=== PATIENT | male | born 1950 | race Caucasian/White ===

== ENCOUNTER 2020-07-16 12:57 | Emergency (ER) | payer MEDICARE, OTHER, SELFPAY ==
[2020-07-16] VITALS (33 sets, daily range): BP systolic 140–191; BP diastolic 96–119; PULSE 66–90; RESP 9–22; TEMP 36.9; O2SAT 88–100
--- NOTE | ~2020-07-16 | CT_ITS ---
EXAMINATION: CT diagnostic chest w con EXAM DATE: 07/16/2020 16:39 INDICATION: Metastasis history of prostatic cancer. TECHNIQUE: Spiral CT of the chest following intravenous injection of 75 mL Omnipaque 350. Axial, cor onal and sagittal images of the chest were reviewed. Coronal maximum intensity pixel images of chest reviewed. The dose-length product (DLP) for this examination was 240.06 mGy-cm. The exposure was t ailored according to patient size (auto mA exposure control), and iterative reconstruction (ASIR) was used as additional dose reduction technique. There is no prior study for comparison. FINDINGS: There is a right middle lobe spiculated mass measuring 3.7 x 2.8 cm, primary lung cancer. CT-guided biopsy recommended. Bibasilar subsegmental atelectasis. There are no pleural or pericardial effusions. Tracheobronchial tree is patent. There is no mediastinal, hilar or axillary lymphaden opathy. There is no pneumothorax. Heart normal in size. No evidence of coronary arterial calcif ication. There are cholecystectomy clips. Scattered osteolytic lesions. There is a 1.5 cm lesion in the right L1 pedicle. There is 1.3 cm lesio n in the manubrium. Approximately 1 cm lesion in the right humeral head. Smaller lesions in the right 5th rib and left 10th rib. Please note that this osteolytic disease is most likely metastatic from l santos mass described above- prostate cancer is typically osteoblastic, not osteolytic. IMPRESSION: 1. Right middle lobe mass likely primary lung cancer; recommend CT-guided biopsy. 2. Scattered osteolytic disease. Reviewed, dictated and finalized at location A. IMPRESSION: 1. Right middle lobe mass likely primary lung cancer; recommend CT-guided biop sy. 2. Scattered osteolytic disease.
--- NOTE | ~2020-07-16 | CT_ITS ---
EXAMINATION: CT brain wo con DATE: 07/16/2020 14:03 INDICATION: Lightheadedness. Neck pain. TECHNIQUE: Computed tomography (CT) of the head was performed without intravenous contrast. The mA wa s adjusted according to patient size. Iterative reconstruction technique was employed. The dose-lengt h product was 681.00 mGy-cm. COMPARISON: None FINDINGS: There is no intracranial hemorrhage, acute infarction, or abnormal intracranial mass lesion . The ventricles are normal in size. There are likely changes of ocular lens replacement surgeries. T he paranasal sinuses are clear. The mastoid air cells are normal. IMPRESSION: 1. Normal brain. Reviewed, dictated and finalized at location A. IMPRESSION: 1. Normal brain.
--- NOTE | ~2020-07-16 | XR_ITS ---
EXAMINATION: XR chest 2V DATE: 07/16/2020 14:10 INDICATION: Left chest pain. TECHNIQUE: Frontal and lateral views of the chest were obtained. COMPARISON: Chest single view 01/02/2007 FINDINGS: The chest demonstrates clear lungs without pneumonia, pleural effusion, or pneumothorax. Th e heart size is normal. IMPRESSION: 1. No acute cardiopulmonary disease. Reviewed, dictated and finalized at location A.
--- NOTE | ~2020-07-16 | CT_ITS ---
EXAMINATION: CT cervical spine wo [facility] EXAM DATE: 07/16/2020 14:03 INDICATION: Neck pain. TECHNIQUE: Spiral CT of the cervical spine was performed without contrast. Axial images were reviewe d. Coronal and sagittal reformatted images cervical spine were also reviewed. The dose-length produc t (DLP) for this examination was 414.48 mGy-cm. The exposure was tailored according to patient size (auto mA exposure control), and iterative reconstruction (ASIR) was used as additional dose reduction technique. There is no prior study for comparison. FINDINGS: There is a 1.7 cm osteolytic lesion in the right side of C2 body. The dens is intact. Smal l or osteolytic lesion in the left side of C3. Probably metastatic disease or multiple myeloma. There is osseous fusion of the C4 and 5 vertebral bodies, facet joints and spinous processes. There is 2 m m retrolisthesis C3 on C4. Moderate loss of the C3-4 and C5-6 disc height. Level by level evaluation: C2-C3: Disc does not extend beyond the endplate margin. Uncovertebral joint arthropathy: None. Facet joint arthropathy: Mild bilateral. Neural foraminal stenosis: No stenosis. Central canal stenosis: No stenosis. C3-C4: There is a mild diffuse disc bulge. Uncovertebral joint arthropathy: Mild bilateral. Facet joint arthropathy: Mild to moderate bilateral. Neural foraminal stenosis: No stenosis. Central canal stenosis: No stenosis. C4-C5: This level is fused. Uncovertebral joint arthropathy: None. Facet joint arthropathy: None. Neural foraminal stenosis: No stenosis. Central canal stenosis: No stenosis. C5-C6: There is a mild diffuse disc bulge. Uncovertebral joint arthropathy: Mild to moderate right, mild left. Facet joint arthropathy: Mild to moderate bilateral. Neural foraminal stenosis: Mild bilateral. Central canal stenosis: Mild. C6-C7: There is a minimal diffuse disc bulge. Uncovertebral joint arthropathy: Mild bilateral. Facet joint arthropathy: Mild bilateral. Neural foraminal stenosis: No stenosis. Central canal stenosis: No stenosis. C7-T1: Disc does not extend beyond the endplate margin. Uncovertebral joint arthropathy: None. Facet joint arthropathy: Mild bilateral. Neural foraminal stenosis: No stenosis. Central canal stenosis: No stenosis. IMPRESSION: 1. Sizable osteolytic lesion in C2 vertebral body right side, smaller in C3. Likely metastatic diseas e or multiple myeloma. 2. Mild to moderate cervical spondylosis. Reviewed, dictated and finalized at location A. IMPRESSION: 1. Sizable osteolytic lesion in C2 vertebral body right side, smaller in C3. Li renetta metastatic disease or multiple myeloma. 2. Mild to moderate cervical spondylosis.
--- NOTE | 2020-07-16 13:04 | ECG_ITS ---
Measurements Intervals [place] Rate: 84 P: 44 DC: 158 QRS: -55 QRSD: 89 T: -11 QT: 332 QTc: 394 Interpretive Statements SINUS RHYTHM LEFT ANTERIOR FASCICULAR BLOCK POOR R WAVE PROGRESSION, ANTERIOR LEADS BASELINE ARTIFACT- I, II, III, AVR, AVL, AVF, V2 ABNORMAL ECG Electronically Signed On 07-16-2020 13:30:25 CDT by Carter Richards D.O.
[2020-07-16 13:17] LABS: Basophils Percent Auto 0.1 % (0.2-1.2); Hematocrit 47.7 % (42.0-52.0); Hemoglobin 16.7 g/dL (14.0-18.0); Immature Granulocyte Absolute 0.09 K/mm3 (0.00-0.031); Immature Granulocyte Percent A 0.9 % (0-0.5); Lymphocytes Absolute Auto 0.55 K/mm3 (0.9-3.2); Lymphocytes Percent Auto 5.6 % (18.3-44.2); Mean Corpuscular Hemoglobin 29.6 pg (26-34); Mean Corpuscular Volume 84.4 fl (80-100); Mean Platelet Volume 7.6 fl (7.4-10.4); Monocytes Absolute Auto 0.2 K/mm3 (0.1-0.6); Monocytes Percent Auto 2.3 % (2.6-8.5); Neutrophils Absolute Auto 8.9 K/mm3 (1.3-6.7); Neutrophils Percent Auto 91.1 % (45.5-73.1); Platelet Count Result 216 k/mm3 (150-375); Red Blood Count 5.65 M/mm3 (4.6-6.20); Red Cell Distribution Width 12.6 % (11.5-14.5); White Blood Count 9.8 K/mm3 (4.5-10.0)
[2020-07-16 13:26] LABS: Anion Gap 7 mmol/L (8-16); Blood Urea Nitrogen 16 mg/dL (9-20); Calcium 9.6 mg/dL (8.4-10.2); Carbon Dioxide 26 mmol/L (22-30); Chloride 104 mmol/L (98-107); Estimated CRCL calculation 84 ml/min; Estimated Glomerular Filt Rate > 60; Glucose 131 mg/dL (75-110); Potassium 4.5 mmol/L (3.4-5.0); Sodium 137 mmol/L (137-145)
--- NOTE | 2020-07-16 13:27 | ED.GENADULT ---
HPI - General Adult General Chief complaint: Arrhythmia/Palpitations Stated complaint: palpitations Time Seen by Provider: 07/16/20 13:26 Source: patient, family and RN notes reviewed Mode of arrival: ambulatory History of Present Illness HPI narrative: Patient is 70 years old white male presents with neck pain mainly right side and left rib pain posteriorly started 3 weeks ago. Was seen by his family physician 6 days ago, started on prednisone 5 days ago. 2 days after the prednisone intake patient started having intermittent lightheadedness, dizziness, palpitations and elevated blood pressure. Usually last less than 10 minutes then spontaneously improved. Patient denies any fever, chills, nausea, vomiting, chest pain, headache, visual abnormality. Patient reports the neck pain and rib pain usually gets worse if you lay down flat, also complaining of decreased range of motion of the neck. The above symptoms are worsening despite of prednisone. The patient does not take medicine at home, no risk factor for coronary artery disease. History of prostatic cancer, prostatectomy. Patient does not smoke or drink or uses drugs. Related Data Home Medications Medication Instructions Recorded Confirmed cyclobenzaprine mg 07/16/20 prednisone 07/16/20 07/16/20 Allergies Allergy/AdvReac Type Severity Reaction Status Date / Time No Known Allergies Allergy Unverified 02/06/18 12:25 Review of Systems Review of Systems: Narrative: CONSTITUTIONAL: Denies fever, chills, or sweats. EYES: Denies visual changes, redness, or discharge. ENT: Denies rhinorrhea, congestion, sore throat, or otalgia. CARDIOVASCULAR: Denies chest pain, palpitations, or edema. RESPIRATORY: Denies cough or dyspnea. GASTROINTESTINAL: Denies abdominal pain, nausea, vomiting, or diarrhea. GENITOURINARY: Denies dysuria or hematuria. SKIN: Denies rash or itching. MUSCULOSKELETAL: Denies back pain, joint pain, or myalgia. NEUROLOGIC: Denies headache, numbness, or weakness. PSYCHIATRIC: Denies anxiety or depression. PMFSH Social History Social History Smoking status: Never smoker Alcohol intake: current Gender identity (if verbalized by the patient): Male Exam Narrative: Exam Narrative: General appearance: Well-developed, well-nourished, at the bedside Skin: Normal color Head: Normocephalic, nontraumatic Eyes: Clear conjunctiva ENT: Oropharynx normal, ears normal, nose normal Neck: Supple, nontender Chest and respiratory: Airway patent, no respiratory distress, no accessory muscle use Heart: Regular rate/rhythm Abdomen: Soft, nontender, no organomegaly, quiet bowel sounds Vascular: Normal peripheral pulses, normal capillary refill. Musculoskeletal: Limited range of motion of neck, diffuse tenderness mainly right side, no bruises, no swelling or rash. Diffuse tenderness left ribs posteriorly, no bruises, no rash or swelling. Neurologic: Alert and oriented ?3, CR[employer]ER is normal as tested, no gross motor deficit Course Course Emergency Course: Stable Consultations Consultation #1: Dr. Flores Recommend patient to call his office tomorrow for appointment Date: 07/16/20 Time: 17:39 Vital Signs Vital signs: Vital Signs Temperature 36.9 C 07/16/20 13:04 Pulse Rate 86 07/16/20 13:04 Respiratory Rate 17 07/16/20 13:04 Blood Pressure 149/101 H 07/16/20 13:04 Pulse Oximetry 100 07/16/20 13:04 Temperature 36.9 C 07/16/20 13:04 Pulse Rate 78 07/16/20 16:43 Respiratory Rate 12 07/16/20 16:43 Blood Pressure 180/110 H 07/16/20 16:43 Pulse Oximetry 99 07/16/20 16:43 Medical Decision Making FABY Paige
[2020-07-16 13:30] LABS: Prothrombin Time 13.4 Seconds (11.1-14.7)
[2020-07-16] MEDS: ASPIRIN 81 MG CHEWABLE TABLET 324 MG PO (13:38)
[2020-07-16 13:39] LABS: Troponin I < 0.012 ng/mL (0.000-0.034)
[2020-07-16] MEDS: ONDANSETRON INJ 4 MG/2 ML VIAL IV PUSH (14:12)
[2020-07-16] MEDS: MORPHINE SULFATE (*CRX) 4 MG/ML INJ IV PUSH (14:13)
[2020-07-16 14:15] LABS: Basophils Percent Auto 0.2 % (0.2-1.2); Hematocrit 46.8 % (42.0-52.0); Hemoglobin 16.3 g/dL (14.0-18.0); Immature Granulocyte Absolute 0.09 K/mm3 (0.00-0.031); Lymphocytes Absolute Auto 0.56 K/mm3 (0.9-3.2); Mean Corpuscular HGB Conc 34.8 g/dl (32-36); Mean Corpuscular Hemoglobin 29.3 pg (26-34); Mean Corpuscular Volume 84.2 fl (80-100); Mean Platelet Volume 8.1 fl (7.4-10.4); Monocytes Absolute Auto 0.2 K/mm3 (0.1-0.6); Neutrophils Absolute Auto 8.5 K/mm3 (1.3-6.7); Neutrophils Percent Auto 90.8 % (45.5-73.1); Platelet Count Result 230 k/mm3 (150-375); Red Blood Count 5.56 M/mm3 (4.6-6.20); Red Cell Distribution Width 12.5 % (11.5-14.5); White Blood Count 9.4 K/mm3 (4.5-10.0)
[2020-07-16 14:27] LABS: INR 0.9; Partial Thromboplastin Time 28.2 SECONDS (22.3-36.8); Prothrombin Time 13.1 Seconds (11.1-14.7)
[2020-07-16 14:43] LABS: Alanine Aminotransferase 60 U/L (4-50); Albumin Level 4.3 g/dL (3.5-5.1); Alkaline Phosphatase 99 U/L (38-126); Anion Gap 5 mmol/L (8-16); Aspartate Amino Transferase 43 U/L (17-59); Bilirubin,Total 0.6 mg/dL (0.2-1.3); Blood Urea Nitrogen 17 mg/dL (9-20); Calcium 9.6 mg/dL (8.4-10.2); Carbon Dioxide 29 mmol/L (22-30); Chloride 104 mmol/L (98-107); Estimated CRCL calculation 84 ml/min; Estimated Glomerular Filt Rate > 60; Glucose 128 mg/dL (75-110); Potassium 4.5 mmol/L (3.4-5.0); Sodium 138 mmol/L (137-145)
[2020-07-16 15:34] LABS: D Dimer < 0.22 ug/mL (<0.48)
[2020-07-16 16:54] LABS: Troponin I < 0.012 ng/mL (0.000-0.034)
== END 2020-07-16 18:02 | disposition home or self-care (01) ==
PROVIDERS: Emergency Medicine; Emergency Provider Emergency Medicine; PCP Family Medicine
DX: C79.51 Secondary malignant neoplasm of bone (principal); C80.1 Malignant (primary) neoplasm, unspecified; R91.8 Other nonspecific abnormal finding of lung field; Z85.46 Personal history of malignant neoplasm of prostate; R94.31 Abnormal electrocardiogram [ECG] [EKG]; I44.4 Left anterior fascicular block; R07.9 Chest pain, unspecified
CPT/HCPCS: 36415; 70450; 71046; 71260; 72125; 80048; 80053; 84484; 85025; 85380; 85610; 85730; 93005; 96374; 96375; 99284; A9270; J2270; J2405; Q9967

== ENCOUNTER 2020-09-29 05:34 | Emergency (ER) | payer MEDICARE, OTHER, SELFPAY ==
[2020-09-29] VITALS (19 sets, daily range): BP systolic 99–130; BP diastolic 64–83; PULSE 92–104; RESP 16–23; TEMP 37.4; O2SAT 92–99
--- NOTE | ~2020-09-29 | XR_ITS ---
EXAMINATION: XR chest 1V DATE: 09/29/2020 06:45 INDICATION: Chest pain. TECHNIQUE: frontal view of the chest was obtained. COMPARISON: Chest radiograph and CT dated 07/16/20 FINDINGS: Interval increase in size of a masslike opacity at the right middle lobe concerning for progression o f malignancy. Mild linear discoid atelectasis/scarring at the left mid and lower lung zones. No pulmo nary edema, pleural effusion or pneumothorax. Cardiomediastinal silhouette is normal. Likely patholog ic fracture at the lateral left seventh rib with suggestion of an underlying lytic bone lesion. Addit ional lytic lesion at the apex of the right humeral head. IMPRESSION: 1. Increase in size of a right middle lobe mass concerning for progression of malignancy, either prim serafin or metastatic. 2. Lytic bone lesion at the right humeral head and at a likely pathologic fracture at the left sevent h rib consistent with metastatic disease or multiple myeloma. Reviewed, dictated and finalized at location A. IMPRESSION: 1. Increase in size of a right middle lobe mass concerning for progression of m alignancy, either primary or metastatic. 2. Lytic bone lesion at the right humeral head and at a likely pathologic fract ure at the left seventh rib consistent with metastatic disease or multiple myel doris.
--- NOTE | ~2020-09-29 | CT_ITS ---
EXAMINATION: CT lumbar spine wo con DATE: 09/29/2020 06:42 INDICATION: Back pain with metastatic prostate cancer and bone metastases TECHNIQUE: Computed tomography (CT) of the lumbar spine was performed without intravenous contrast. A utomated exposure control and iterative reconstruction technique were employed. The dose-length produ ct was 821.31 mGy-cm. COMPARISON: None FINDINGS: Bone alignment is normal. Vertebral body heights are normal. No fracture. Large lytic expan sile mass of L1 with complete destruction of the right lamina and pedicle on all but the tip of the r ight transverse process and extending into the right posterior aspect of the vertebral body. The mass measures approximately 6.6 x 6.3 x 7.7 cm in maximal dimensions and appears to invade the right side of the central canal resulting in mild to moderate central canal stenosis. There is also severe narr owing of the right neural foramen at T12-L1 and moderate narrowing of the right neural foramen at L1- L2. There are multiple additional significant smaller lytic lesions at the T11, L2, L4, L5 and S1 cathleen tebral bodies. Lytic lesion at the L3 vertebral body with intact internal vertical trabecula consiste nt with a hemangioma. 2.1 cm lytic lesion in the innominate bone along the inferior aspect of the sac roiliac joint. Disc heights are normal. There are mild disc bulges from L2-3 through L5-S1 resulting in mild central canal stenosis at L4-L5 and only minimal central canal stenosis at the remaining leve ls. Minimal osteoarthritis at the lumbar facet joints. 2 mm nonobstructing stone at the upper pole of the right kidney. Mild bilateral hydroureteronephrosis with the distalmost ureters not included with in the [id number]. Cholecystectomy clips the gallbladder fossa. No pathologically enlarged retrope ritoneal lymphadenopathy along the lumbar spine. IMPRESSION: 1. 7.7 cm expansile and destructive likely metastatic mass centered at the right posterior elements o f L1 which invades the central canal is mild to moderate stenosis with additional severe and moderate stenosis of the right T12-L1 and L1-L2 neural foramina respectively. 2. Several additional smaller lytic bone lesions suspicious for metastatic disease. 3. Minimal underlying lumbar spondylosis. 4. Mild bilateral hydroureteronephrosis which suggests outlet obstruction however a 2 mm stone is zoya ntified at the right kidney and could not exclude obstructing stones in the distalmost and visualized portions of the ureters. Reviewed, dictated and finalized at location A. IMPRESSION: 1. 7.7 cm expansile and destructive likely metastatic mass centered at the righ t posterior elements of L1 which invades the central canal is mild to moderate stenosis with additional severe and moderate stenosis of the right T12-L1 and L 1-L2 neural foramina respectively. 2. Several additional smaller lytic bone lesions suspicious for metastatic dise ase. 3. Minimal underlying lumbar spondylosis. 4. Mild bilateral hydroureteronephrosis which suggests outlet obstruction howev er a 2 mm stone is identified at the right kidney and could not exclude obstruc ting stones in the distalmost and visualized portions of the ureters.
--- NOTE | 2020-09-29 06:29 | ED.GENADULT ---
HPI - General Adult General Chief complaint: Unspecified <Naga Rosen MD - Last Filed: 09/29/20 07:10> Stated complaint: pain all over/ cancer treatment <Naga Rosen MD - Last Filed: 09/29/20 07:10> Time Seen by Provider: 09/29/20 06:18 <Naga Rosen MD - Last Filed: 09/29/20 07:10> History of Present Illness HPI narrative: Patient 70-year-old gentleman who presents the emergency department with chief complaint of back pain. The patient reports he has history of metastatic cancer and had mets to the cervical spine and he developed a pathological fracture after he has been undergoing chemotherapy. The patient is followed at [facility] and is also followed by neurosurgery there and is currently in a [place] [facility] collar. Patient reports they started him on oxycodone and the patient states he has been taking that without relief of his pain. The patient states that his had no new trauma reports that he has a little bit of tingling in his legs but denies any focal neurological deficit denies urinary retention or foot drop. Patient reports his pain mostly is in the lumbar region at this time <Naga Rosen MD - Last Filed: 09/29/20 07:10> Related Data Home medications: Home Medications Medication Instructions Recorded Confirmed cyclobenzaprine mg 07/16/20 amiodarone 09/29/20 dexamethasone 09/29/20 folic acid 09/29/20 metoprolol tartrate 09/29/20 09/29/20 ondansetron HCl 09/29/20 oxycodone 09/29/20 oxycodone [OxyContin] mg PO 09/29/20 <Naga Rosen MD - Last Filed: 09/29/20 07:10> Allergies/adverse reactions: Allergies Allergy/AdvReac Type Severity Reaction Status Date / Time No Known Allergies Allergy Verified 09/29/20 17:16 <Naga Rosen MD - Last Filed: 09/29/20 07:10> Review of Systems Review of Systems: A 10 system review of systems was completed on the patient and is negative except for what is stated in the HPI. Nursing and ancillary documentation was reviewed. <Naga Rosen MD - Last Filed: 09/29/20 07:10> PMFSH Past Medical History Medical History: Medical History (Updated 09/30/20 @ 07:20 by Shayla Orellana MD) Chronic atrial fibrillation, unspecified Essential hypertension Lung cancer Prostate cancer 2014 <Naga oRsen MD - Last Filed: 09/29/20 07:10> Surgical History Surgical History: Surgical History (Updated 09/29/20 @ 19:59 by Jon Bulter MD) History of robot-assisted laparoscopic radical prostatectomy 2014 Hx laparoscopic cholecystectomy 2018 <Naga Rosen MD - Last Filed: 09/29/20 07:10> Family History Family History: Family History (Updated 09/29/20 @ 19:59 by Jon Butler MD) Father Malignant neoplasm of prostate Mother Pacemaker <Naga Rosen MD - Last Filed: 09/29/20 07:10> Social History Social History: Social History (Updated 09/29/20 @ 20:29 by Jon Butler MD) Smoking status: Never smoker Alcohol intake: current Substance use: never Living arrangements: with family Additional living arrangements comments: Spouse Occupation/Education: retired Additional occupation/education comments: retired from [employer], officer in IT Gender identity (if verbalized by the patient): Male Spiritual care concerns: No <Naga Rosen MD - Last Filed: 09/29/20 07:10> Exam Narrative: GENERAL: Well-appearing, well-nourished, and in no acute distress. HEAD: Normocephalic, atraumatic. EYES: PERRLA and EOMI. ENT: Nares clear, no rhinorrhea or epistaxis. Mucous membranes moist. NECK: Supple. CHEST: Clear to auscultation. No respiratory distress. HEART: Regular rate and rhythm. No murmur heard. Normal peripheral pulses. ABDOMEN: Soft, nontender, nondistended, normal active bowel sounds. EXTREMITIES: Normal range of motion. No edema. SKIN: Warm, dry, n
--- NOTE | 2020-09-29 06:32 | PC.NURSE ---
Patient in CT.
[2020-09-29] MEDS: SODIUM CHLORIDE 0.9% IV 1,000 ML 999 ML IV CONT (06:51)
[2020-09-29] MEDS: HYDROmorphone HCL INJ (*CRX) 1 MG/ML SYR IV PUSH ×2 (06:51→07:29)
[2020-09-29] MEDS: ONDANSETRON INJ 4 MG/2 ML VIAL IV PUSH (06:52)
[2020-09-29 07:07] LABS: Basophils Percent Auto 0.5 % (0.2-1.2); Eosinophils Percent Auto 0.3 % (0-4.4); Hematocrit 35.9 % (42.0-52.0); Hemoglobin 11.2 g/dL (14.0-18.0); Immature Granulocyte Absolute 1.46 K/mm3 (0.00-0.031); Immature Granulocyte Percent A 23.7 % (0-0.5); Lymphocytes Absolute Auto 0.24 K/mm3 (0.9-3.2); Lymphocytes Percent Auto 3.9 % (18.3-44.2); Mean Corpuscular HGB Conc 31.2 g/dl (32-36); Mean Corpuscular Hemoglobin 26.9 pg (26-34); Mean Corpuscular Volume 86.1 fl (80-100); Monocytes Percent Auto 0.5 % (2.6-8.5); Neutrophils Absolute Auto 4.4 K/mm3 (1.3-6.7); Neutrophils Percent Auto 71.1 % (45.5-73.1); Platelet Count Result 125 k/mm3 (150-375); Red Blood Count 4.17 M/mm3 (4.6-6.20); Red Cell Distribution Width 13.9 % (11.5-14.5); White Blood Count 6.2 K/mm3 (4.5-10.0)
[2020-09-29 07:15] LABS: Alanine Aminotransferase 32 U/L (4-50); Albumin Level 3.2 g/dL (3.5-5.1); Alkaline Phosphatase 205 U/L (38-126); Anion Gap 7 mmol/L (8-16); Aspartate Amino Transferase 36 U/L (17-59); Blood Urea Nitrogen 20 mg/dL (9-20); Calcium 9.2 mg/dL (8.4-10.2); Carbon Dioxide 29 mmol/L (22-30); Chloride 93 mmol/L (98-107); Estimated Glomerular Filt Rate > 60; Glucose 110 mg/dL (65-110); Potassium 4.3 mmol/L (3.4-5.0); Sodium 129 mmol/L (137-145)
[2020-09-29 07:16] LABS: Lactic Acid Reflex 0.9 mmol/L (0.7-2.1)
[2020-09-29 08:03] LABS: Add Urine Microscopic? YES; Appearance Urine Clear (Clear); Bacteria Urine Trace /hpf; Bilirubin Urine Negative (Negative); Blood Urine 1+ (Negative); Color Urine Yellow (Yellow); Glucose Urine UA Negative (Negative); Ketones Urine Trace mg/dL (Negative); Leukocyte Esterase Ur Negative LEU/UL (Negative); Nitrate Urine Negative (Negative); Protein Urine Negative (Negative); RBC Urine 21-50 /hpf (0-2); Specific Grav Ur 1.014 (1.001-1.035); WBC Urine 0-3 /hpf
[2020-09-29] MEDS: fentaNYL CITRATE INJ (*CRX) 100 MCG/2 ML VIAL 50 MCG IV PUSH (08:39)
[2020-09-29] MEDS: MORPHINE SULFATE (*CRX) 4 MG/ML INJ IV PUSH ×4 (09:17→13:22)
[2020-09-29 10:37] LABS: EDCOVIDSCREEN Negative (Negative)
--- NOTE | 2020-09-29 13:39 | PC.NURSE ---
made contact with lisseth to touch base about a bed opening. Lisseth informed me that there is not a bed open at the moment but they are expecting a bed opening this afternoon. will follow-up
--- NOTE | 2020-09-29 14:05 | PC.NURSE ---
Pt crying saying the pain is too much and he cant take it anymore. He states he has discussed it with his and wishes to stop all treatment and go on hospice care. Dr. Orellana notified and Care Coordination called to talk to patient. Additional order of 100mcg fentanyl ordered for patient.
[2020-09-29] MEDS: fentaNYL CITRATE INJ (*CRX) 100 MCG/2 ML VIAL IV PUSH (14:09)
--- NOTE | 2020-09-29 14:22 | PCCCNOTE ---
Care Coordination was requested to visit pt as he is requesting hospice admission. Pt states he has cancer and is dealing with uncontrolled pain and would like to proceed with hospice. Pt's is in his room at the time of this conversation. Pt states he understands the purpose of hospice and is unable to tolerate the pain any longer. Pt states his and children are in agreement to proceeding with hospice. Pt was given list of hospice entities. [facility] was called to visit pt and his . Faxed face sheet, hospice consult order and MD note from the ED to [facility] at [phone]. A Hospice nurse will be out to see pt soon.
[2020-09-29] MEDS: methylPREDNISolone SOD SUCC 40 MG VIAL 30 MG IV PUSH (16:10)
[2020-09-29] MEDS: HYDROmorphone HCL INJ (*CRX) 1 MG/ML SYR 2 MG IV PUSH (16:10)
--- NOTE | 2020-09-29 16:58 | PC.NURSE ---
pt departed unit to room 318 at 1655 via nuclear chemistry technician
== END 2020-09-29 16:55 | disposition hospice, inpatient (51) ==
PROVIDERS: Emergency Medicine; Emergency Provider Emergency Medicine; PCP Family Medicine
DX: M54.5 Low back pain (principal); C34.90 Malignant neoplasm of unspecified part of unspecified bronchus or lung; C79.51 Secondary malignant neoplasm of bone; Z20.822 Contact with and (suspected) exposure to COVID-19; I48.20 Chronic atrial fibrillation, unspecified; I10 Essential (primary) hypertension; Z85.46 Personal history of malignant neoplasm of prostate; Z90.79 Acquired absence of other genital organ(s); N13.30 Unspecified hydronephrosis; N20.0 Calculus of kidney; Z87.442 Personal history of urinary calculi; Z79.899 Other long term (current) drug therapy
CPT/HCPCS: 36415; 71045; 72131; 80053; 81001; 83605; 85025; 87040; 87426; 96361; 96374; 96375; 96376; 99285; C9803; J1170; J2270; J2405; J2920; J3010; J7030

== ENCOUNTER 2020-09-29 15:30 | HOS | payer OTHER, MEDICARE, SELFPAY ==
--- OUTSIDE RECORDS SUMMARY | 2020-09-29 16:39 | XMS_ITS | Encounter Summary ---
:1950 Author Reason for Visit stiff neck Assessment and Plan 1. Neck pain Prednisone with food x 5 days, avoid other nsaids cyclobenzaprine 5 mg 1-2 po tid prn, may cause drowsiness this should help his muscle spasm left f lank as well continue heat, gentle stretching, activi ties as tolerated call/return if no improvement in 1 week or sooner if needed reviewed s/s that warrant urgent/emergen t eval in meantime ? prednisone 20 mg tablet ? cyclobenzaprine 5 mg table t 2. Essential hypertension bp normal today, but home bps are elevated. Pt has been in discomfort He will take home bps 1-2x per week for next 6 weeks and we can adjust meds as needed if it is elevated Discussion Note: None recorded.Patient educational handouts: No information available. Plan of Care Reminders Provider Appointments None ? ? recorded. Lab None ? ? recorded. Referral None ? ? recorded. Procedures None ? ? recorded. Surgeries None ? ? recorded. Imaging None ? ? recorded. Medications Name Start Date ? ? Gladys 10/01/2015 amiodarone 200 mg tablet ? cyclobenzaprine 10 mg tablet ? cyclobenzaprine 5 mg tablet ? TAKE 1 TO 2 TABLETS BY MOUTH THREE TIMES DAILY NEE DED
--- OUTSIDE RECORDS SUMMARY | 2020-09-29 16:39 | XMS_ITS ---
:1950 Author Care Team Providers Name Role Phone Kamila Primary Care Provider Unavailable Allergies Code Code System Name Reaction Severity Status Onset NKDA ? Medications Name Status Start Date Stop Date ? ? Aleve Active 10/01/2015 Not available alprazolam 0.5 mg tablet Completed ? 016 TAKE 1 TO 2 TABLETS TWICE A DAY NEEDED amiodarone 200 mg tablet Active ? Not althea ilable Antivert 25 mg tablet Completed ? 05/25/2013 Take 1 tablet 3 times a day by oral route as needed. Cialis 5 mg tablet Completed ? 10/01/2015 TAKE 1 TABLET BY MOUTH DAILY NEEDED ciprofloxacin 500 mg tablet Completed ? 04/2015 TAKE 1 TABLET TWICE A DAY STARTING 1 DAY PRIOR TO CATHETER BERENICE RONNIE cyclobenzaprine 10 mg tablet Active ? Not available cyclobenzaprine 5 mg tablet Active ? Not available TAKE 1 TO 2 TABLETS BY MOUTH THREE TIMES DAILY NEEDED dexamethasone 4 mg tablet Active ? Not av ailable TAKE 2 TABLETS DAILY WITH BREAKFAST FOR 5 DAYS STARTING THE DAY PRIOR TO EACH TREATMENT CYCLE docusate sodium 100 mg capsule Completed ? 0 10/01/2015 TAKE ONE CAPSULE TWICE A DAY doxepin 25 mg capsule Completed ? 11/20/2019 1-2 capsules po qhs prn insomnia folic acid 1 mg tablet Active ? Not avail able TAKE 1 TABLET BY MOUTH DAILY STARTING 7 DAYS BEFORE THE FIRST TREATMENT AND CONTINUING UNTIL 21 DAYS AFTER THE LAST TREATMENT gabapentin 300 mg capsule Active ? Not av ailable hydrocodone 5 mg-acetaminophen 325 mg
--- OUTSIDE RECORDS SUMMARY | 2020-09-29 16:39 | XMS_ITS ---
:1950 Author Care Team Providers Name Role Phone Kamila Primary Care Provider Unavailable Allergies Code Code System Name Reaction Severity Status Onset NKDA ? Medications Name Status Start Date Stop Date ? ? Aleve Active ? Not available alprazolam 0.5 mg tablet Completed ? 016 TAKE 1 TO 2 TABLETS TWICE A DAY NEEDED Antivert 25 mg tablet Completed ? 05/25/2013 Take 1 tablet 3 times a day by oral route as needed. Cialis 5 mg tablet Completed ? 10/01/2015 TAKE 1 TABLET BY MOUTH DAILY NEEDED ciprofloxacin 500 mg tablet Completed ? 04/2015 TAKE 1 TABLET TWICE A DAY STARTING 1 DAY PRIOR TO CATHETER BERENICE RONNIE docusate sodium 100 mg capsule Completed ? 0 10/01/2015 TAKE ONE CAPSULE TWICE A DAY doxepin 25 mg capsule Active ? Not availa ble hydrocodone 5 mg-acetaminophen 325 mg Active ? Not available tablet lorazepam 1 mg tablet Completed ? 05/25/2013 TAKE 1 TABLET ONE HOUR PRIOR TO FLIGHT losartan 50 mg tablet Active ? Not availa ble Nitrostat 0.4 mg sublingual tablet Active ? Not available promethazine 25 mg tablet Completed ? 2015 TAKE 1 TABLET(S) EVERY 4 HOURS BY ORAL ROUTE NEEDED. tobramycin 0.3 %-dexamethasone 0.1 % Active ? Not available eye drops,suspension trazodone 100 mg tablet Completed ? 10/13/19 17 TAKE 1/2 TO 1 TAB BY MOUTH AT BEDTIME NEEDED FOR INSOMNIA Vitamin D3 50 mcg (2,000 unit) tablet Active ?
--- OUTSIDE RECORDS SUMMARY | 2020-09-29 16:39 | XMS_ITS | Continuity of Care Document ---
:1950 Author Organization [facility] Care Team Providers Name Role Phone [facility] Unavailable Unavailable Medications Combined list of outpatient medications from [facility] of Defense and Veterans Affairs facilities. Medications provided include 1) outpatient medications from [facility] 15 months, and 2) patient-reported medications. Medication Details Route Status Patient Prescription Prescription Last Ordering Order Source Instructions Expires Number Dispense Provider Date Date CYCLOBENZAP Active [id number] CARI 08/22 / Pharmac RINE HCL 2020 y Data (cyclobenza Transac jani HCl), tion 10 MG, Service TABLET, Facilit ORAL, y [employer] 1000 ea. BOTTLE CYCLOBENZAP Active [id number] FACUNDO, 06/28 4/ Pharmac RINE HCL 2020 y Data (cyclobenza Transac jani HCl), tion 5 MG, Service TABLET, Facilit ORAL, y [employer] 100 ea. BOTTLE GABAPENTIN Active [id number] JACKIE 08/29 6/ Pharmac (GABAPENTIN 2020 y Data
[2020-09-29 17:11] VITALS: BMI 23.1
[2020-09-29 17:37] VITALS: O2SAT 97
--- OUTSIDE RECORDS SUMMARY | 2020-09-29 19:04 | XMS_ITS | Continuity of Care Document ---
:1950 Author Organization [facility] Care Team Providers Name Role Phone [facility] Unavailable Unavailable Medications Combined list of outpatient medications from [facility] of Defense and Veterans Affairs facilities. Medications provided include 1) outpatient medications from [facility] 15 months, and 2) patient-reported medications. Medication Details Route Status Patient Prescription Prescription Last Ordering Order Source Instructions Expires Number Dispense Provider Date Date CYCLOBENZAP Active [id number] CARI 08/22 / Pharmac RINE HCL 2020 y Data (cyclobenza Transac jani HCl), tion 10 MG, Service TABLET, Facilit ORAL, y [employer] 1000 ea. BOTTLE CYCLOBENZAP Active [id number] FACUNDO, 06/28 4/ Pharmac RINE HCL 2020 y Data (cyclobenza Transac jani HCl), tion 5 MG, Service TABLET, Facilit ORAL, y [employer] 100 ea. BOTTLE GABAPENTIN Active [id number] JACKIE 08/29 6/ Pharmac (GABAPENTIN 2020 y Data
--- NOTE | 2020-09-29 19:37 | PM.IMHP ---
H&P: HPI History of Present Illness Date/Time: 09/29/20 19:37 Chief Complaint: uncontrolled neck pain Narrative: 70-year-old gentleman was recently diagnosed with lung cancer metastatic to bone about 6 weeks ago. He was seen at [facility]. He was given radiation therapy and chemotherapy. The latter was not well tolerated. Over the last 3 weeks he has had increasing pain in his right hip but especially in the right side of his neck. No weakness or numbness or radiation down the arm. No trouble swallowing. No bowel or bladder changes. OxyContin 60 mg twice daily was not controlling his pain. The pain increased in intensity to the point he was not able to get up out of bed and walk on his own over last several days. He came to the emergency room tonight because the pain was 10/10 intensity and he was obtaining no relief from his medications at home. He has opted for comfort care only due to his tumor being non operable and due to receiving the maximal amount of tolerated therapy for his tumor. In the emergency department he received a total of 150 mcg a fentanyl, 8 mg of morphine, and 4 mg of Dilaudid without relief. He currently complains of pain in the right side of the neck the entire spine both shoulders and the right hip. Deep aching pain 10/10 intensity. Aggravated by any movement or pressure. Not relieved by anything. Review of Systems Review of Systems: Loss of appetite and weight loss. Fatigue. Chest pain with breathing. Shallow breathing. All systems reviewed & are unremarkable except as noted in HPI and below PMFSH Past Medical History Medical History (Updated 09/29/20 @ 20:25 by Jon Butler MD) Chronic atrial fibrillation, unspecified Essential hypertension Lung cancer Prostate cancer 2013 Surgical History Surgical History (Updated 09/29/20 @ 19:59 by Jon Butler MD) History of robot-assisted laparoscopic radical prostatectomy 2014 Hx laparoscopic cholecystectomy 2018 Family History Family History (Updated 09/29/20 @ 19:59 by Jon Butler MD) Father Malignant neoplasm of prostate Mother Pacemaker Social History Social History (Updated 09/29/20 @ 20:29 by Jon Butler MD) Smoking status: Never smoker Alcohol intake: current Substance use: never Living arrangements: with family Additional living arrangements comments: Spouse Occupation/Education: retired Additional occupation/education comments: retired from [employer], officer in [employer] Gender identity (if verbalized by the patient): Male Spiritual care concerns: No Meds Home Medications and Allergies Home Medications Medication Instructions Recorded Confirmed Type cyclobenzaprine mg 07/16/20 History amiodarone 09/29/20 History dexamethasone 09/29/20 History folic acid 09/29/20 History metoprolol tartrate 09/29/20 09/29/20 History ondansetron HCl 09/29/20 History oxycodone 09/29/20 History oxycodone [OxyContin] mg PO 09/29/20 History Allergies Allergy/AdvReac Type Severity Reaction Status Date / Time No Known Allergies Allergy Verified 09/29/20 17:16 Vital Signs Vital Signs - 24 hr 09/29/20 17:37 Pulse Oximetry 97 Exam Narrative: HEENT: Thin elderly gentleman who appears older than his stated age. HEENT: PERRL, sclerae nonicteric, pharyngeal mucosa pink and intact NECK: No JVD, adenopathy, or thyromegaly CHEST: Clear to auscultation. Normal effort. HEART: NL S1/S2, regular, no murmur ABDOMEN: BS+, soft, nontender, no mass, no bruits EXTREMITIES: No cyanosis, edema, or clubbing NEUROLOGIC: CN intact and symmetric to inspection. MUSCULOSKELETAL: Tone and strength symmetric. PSYCH: Alert. Oriented to person, place, and time. Assessment and Plan Assessment and plan (1) Palliative care by specialist: Code(s): Z51.5 - Encounter for palliative care Status: Acute Assessment and Plan: Meet inpatient h
[2020-09-29] MEDS: LORazepam INJ (*CRX) 2 MG/ML VIAL 1 MG IV PUSH (19:55)
[2020-09-29] MEDS: HYDROmorphone HCL/PF (*CRX) 50 MG in SODIUM CHLORIDE 0.9% IV 95 ML IV CONT ×2 (20:00→20:16)
[2020-09-29] MEDS: GABAPENTIN 300 MG CAPSULE PO (20:18)
[2020-09-29] MEDS: methylPREDNISolone SOD SUCC 40 MG VIAL 30 MG IV PUSH (20:18)
[2020-09-29] MEDS: HYDROmorphone HCL INJ (*CRX) 1 MG/ML SYR 2 MG IV PUSH (21:08)
[2020-09-30] MEDS: HYDROmorphone HCL INJ (*CRX) 1 MG/ML SYR 2 MG IV PUSH ×4 (01:52→10:03)
[2020-09-30] MEDS: LORazepam INJ (*CRX) 2 MG/ML VIAL 1 MG IV PUSH (07:37)
[2020-09-30 08:00] VITALS: PULSE 76; O2SAT 97
[2020-09-30 10:07] VITALS: PULSE 76
[2020-09-30] MEDS: methylPREDNISolone SOD SUCC 40 MG VIAL 30 MG IV PUSH ×2 (10:07→20:13)
[2020-09-30] MEDS: GABAPENTIN 300 MG CAPSULE PO ×4 (10:07→20:14)
[2020-09-30] MEDS: AMIODARONE HCL 200 MG TABLET PO (10:07)
[2020-09-30 10:08] VITALS: PULSE 76
[2020-09-30] MEDS: METOPROLOL TARTRATE 50 MG TAB PO ×2 (10:08→18:39)
[2020-09-30] MEDS: HYDROmorphone HCL INJ (*CRX) 1 MG/ML SYR 4 MG IV PUSH ×4 (12:03→22:00)
[2020-09-30] MEDS: HYDROmorphone HCL/PF (*CRX) 50 MG in SODIUM CHLORIDE 0.9% IV 95 ML 8 MG IV CONT (14:42)
--- NOTE | 2020-09-30 15:46 | ADMGEN ---
This patient, Kavin Ansari, was admitted to 3 [facility] Surg Room 318-01 on 09/29/20 @ 1705. Patient/family oriented to hospital policies and general routines including ID bracelet, bed and alarms, visiting hours, pain management, procedures, bathroom and other care routines, personal items, smoking policy, room service/diet, and visiting hours. Information on how to activate the Rapid Response Team has been discussed. Patient/Family are encouraged to report perceived risks to care and to ask questions if they do not understand what they are told or what they should do.
[2020-09-30 17:03] VITALS: PULSE 76; O2SAT 97
--- NOTE | 2020-09-30 17:06 | PM.IMPN ---
Progress Note: A&P Assessment and Plan (1) Palliative care by specialist: Code(s): Z51.5 - Encounter for palliative care Status: Acute Assessment and Plan: Meets inpatient hospice criteria due to requirement for continuous IV hydromorphone for uncontrolled pain hydromorphone 2 mg per hour and 2 mg hourly as needed for analgesia with rapid titration to comfort Hydromorphone increased to 4mg/hr 8/3 AM, 5mg/hr 8/3 PM. Solu-Medrol 30 mg IV Q 12 hours gabapentin 300 mg p.o. q.i.d. remainder of palliative regimen as ordered discussed at length with patient and spouse at bedside, including risk of quadriplegia if he falls, need for additional help at home, assist with transfer from bed to w/c Attempt transition to PO meds 8/4 AM. (2) Lung cancer: Code(s): C34.90 - Malignant neoplasm of unspecified part of unspecified bronchus or lung Status: Acute (3) Bone metastasis: Code(s): C79.51 - Secondary malignant neoplasm of bone Status: Acute Subjective Date/time seen: 09/30/20 17:06 Interval history: Admitted inpatient hospice 09/29. 09/30: Pain tolerable. Required no breakthrough since drip increased. But wants to be a bit more comfortable before transitioning to PO meds. Pain mild to moderate at rest in right hip, neck, left osuna. Bowels moved 8/2 PM. Review of Systems Review of Systems: All systems reviewed & are unremarkable except as noted in HPI and below Exam Narrative: HEENT: Thin elderly gentleman who appears older than his stated age. HEENT: PERRL, sclerae nonicteric, pharyngeal mucosa pink and intact NECK: No JVD, adenopathy, or thyromegaly CHEST: Clear to auscultation. Normal effort. HEART: NL S1/S2, regular, no murmur ABDOMEN: BS+, soft, nontender, no mass, no bruits EXTREMITIES: No cyanosis, edema, or clubbing NEUROLOGIC: CN intact and symmetric to inspection. MUSCULOSKELETAL: Tone and strength symmetric. PSYCH: Alert. Oriented to person, place, and time. Objective Data Vital Signs Vital Signs: Vital Signs - 24 hr 09/29/20 17:37 09/30/20 08:00 09/30/20 10:07 Pulse Rate 76 76 Pulse Oximetry 97 97 09/30/20 10:08 Pulse Rate 76 Pulse Oximetry Intake/Output Intake/Output: Intake & Output 09/27/20 09/28/20 09/29/20 09/30/20 23:59 23:59 23:59 23:59 Intake Total 100 100 Balance 100 100 Meds/Results Medications: Active Medications Generic Name Dose Route Start Last Admin Trade Name Freq PRN Reason Stop Dose Admin Amiodarone HCl 200 mg 09/30/20 08:00 09/30/20 10:07 Amiodarone Hcl 200 Mg Tablet PO 200 mg DAILY@0800 MAR Administration Bisacodyl 10 mg 09/29/20 19:25 Bisacodyl 10 Mg Suppository RECTAL DAILY PRN Constipation Gabapentin 300 mg 09/29/20 21:00 09/30/20 14:34 Gabapentin 300 Mg Capsule PO 300 mg QID MAR Administration Glycopyrrolate 0.1 mg 09/29/20 19:27 Glycopyrrolate Inj (*Sp) 0.2 Mg/Ml Vial IV PUSH Q4H PRN secretions Hydromorphone HCl 4 mg 09/30/20 10:15 09/30/20 14:33 Hydromorphone Hcl Inj (*Crx) 1 Mg/Ml Syr IV PUSH 4 mg Q1H PRN Administration Pain Hydromorphone HCl 50 mg/ 100 mls @ 8 mls/hr 09/29/20 19:25 09/30/20 14:42 Sodium Chloride IV CONT 4 mg/hr .[id number] MAR 8 mls/hr Administration 4 MG/HR Lorazepam 1 mg 09/29/20 19:25 09/30/20 07:37 Lorazepam Inj (*Crx) 2 Mg/Ml Vial IV PUSH 1 mg Q4H PRN Administration Anxiety Methylprednisolone Sodium Succinate 30 mg 09/29/20 20:00 09/30/20 10:07 Methylprednisolone Sod Succ 40 Mg Vial IV PUSH 30 mg Q12H MAR Administration Metoprolol Tartrate 50 mg 09/30/20 09:00 09/30/20 10:08 Metoprolol Tartrate 50 Mg Tab PO 50 mg BID MAR Administration Prochlorperazine Edisylate 10 mg 09/29/20 19:25 Prochlorperazine Edisylate 10 Mg/2 Ml Vial IV PUSH Q6H PRN Nausea And Vomiting
[2020-09-30 18:39] VITALS: PULSE 72
[2020-09-30 20:00] VITALS: BP 107/62; PULSE 76; RESP 18; TEMP 36; O2SAT 92
[2020-10-01] MEDS: HYDROmorphone HCL/PF (*CRX) 50 MG in SODIUM CHLORIDE 0.9% IV 95 ML 10 MG IV CONT (01:16)
[2020-10-01] MEDS: HYDROmorphone HCL INJ (*CRX) 1 MG/ML SYR 4 MG IV PUSH ×9 (02:57→23:16)
[2020-10-01 08:43] VITALS: PULSE 74
[2020-10-01] MEDS: AMIODARONE HCL 200 MG TABLET PO (08:43)
[2020-10-01] MEDS: GABAPENTIN 300 MG CAPSULE PO ×3 (08:43→16:10)
[2020-10-01] MEDS: methylPREDNISolone SOD SUCC 40 MG VIAL 30 MG IV PUSH (08:43)
[2020-10-01] MEDS: METOPROLOL TARTRATE 50 MG TAB PO ×2 (08:43→16:11)
[2020-10-01] MEDS: methADONE HCL (*CRX) 10 MG TABLET PO ×3 (09:57→22:16)
[2020-10-01 16:11] VITALS: PULSE 85
--- NOTE | 2020-10-01 17:00 | PM.IMPN ---
Progress Note: A&P Assessment and Plan (1) Palliative care by specialist: Code(s): Z51.5 - Encounter for palliative care Status: Acute Assessment and Plan: Meets inpatient hospice criteria due to requirement for continuous IV hydromorphone for uncontrolled pain hydromorphone 2 mg per hour and 2 mg hourly as needed for analgesia with rapid titration to comfort Hydromorphone increased to 4mg/hr 8 AM, 5mg/hr 09/30 PM. , stopped 10/01 AM Hydromorphone 8mg PO q 6 hrs scheduled and 4mg IV q 1 hours prn. Methadone 10mg TID 10/01 AM Solu-Medrol 30 mg IV Q 12 hours changed to prednisone 20mg bid 10/01 PM. gabapentin 300 mg p.o. q.i.d., 10/01 incr to 600mg qid. remainder of palliative regimen as ordered discussed at length with patient and spouse at bedside, including risk of quadriplegia if he falls, need for additional help at home, assist with transfer from bed to w/c Attempt transition to PO meds 10/01 AM. (2) Lung cancer: Code(s): C34.90 - Malignant neoplasm of unspecified part of unspecified bronchus or lung Status: Acute (3) Bone metastasis: Code(s): C79.51 - Secondary malignant neoplasm of bone Status: Acute Subjective Date/time seen: 10/01/20 17:00 Interval history: Admitted inpatient hospice 09/29. 10/01: Pain moderate to severe since transition to PO meds this AM. Pain in right hip, neck, left osuna. Bowels moved 09/29 PM. Review of Systems Review of Systems: All systems reviewed & are unremarkable except as noted in HPI and below Exam Narrative: HEENT: Thin elderly gentleman who appears older than his stated age. HEENT: PERRL, sclerae nonicteric, pharyngeal mucosa pink and intact NECK: No JVD, adenopathy, or thyromegaly CHEST: Clear to auscultation. Normal effort. HEART: NL S1/S2, regular, no murmur ABDOMEN: BS+, soft, nontender, no mass, no bruits EXTREMITIES: No cyanosis, edema, or clubbing NEUROLOGIC: CN intact and symmetric to inspection. MUSCULOSKELETAL: Tone and strength symmetric. PSYCH: Alert. Oriented to person, place, and time. Objective Data Vital Signs Vital Signs: Vital Signs - 24 hr 09/30/20 17:03 09/30/20 18:39 09/30/20 20:00 Temperature 96.8 F L Pulse Rate 76 72 76 Respiratory Rate 18 Blood Pressure 107/62 Pulse Oximetry 97 92 10/01/20 08:43 10/01/20 16:11 Temperature Pulse Rate 74 85 Respiratory Rate Blood Pressure Pulse Oximetry Intake/Output Intake/Output: Intake & Output 09/28/20 09/29/20 09/30/20 10/01/20 23:59 23:59 23:59 23:59 Intake Total 100 580 320 Balance 100 580 320 Meds/Results Medications: Active Medications Generic Name Dose Route Start Last Admin Trade Name Freq PRN Reason Stop Dose Admin Amiodarone HCl 200 mg 09/30/20 08:00 10/01/20 08:43 Amiodarone Hcl 200 Mg Tablet PO 200 mg DAILY@0800 MAR Administration Bisacodyl 10 mg 09/29/20 19:25 Bisacodyl 10 Mg Suppository RECTAL DAILY PRN Constipation Gabapentin 300 mg 09/29/20 21:00 10/01/20 16:10 Gabapentin 300 Mg Capsule PO 300 mg QID MAR Administration Glycopyrrolate 0.1 mg 09/29/20 19:27 Glycopyrrolate Inj (*Sp) 0.2 Mg/Ml Vial IV PUSH Q4H PRN secretions Hydromorphone HCl 4 mg 09/30/20 10:15 10/01/20 16:11 Hydromorphone Hcl Inj (*Crx) 1 Mg/Ml Syr IV PUSH 4 mg Q1H PRN Administration Pain Lorazepam 1 mg 09/29/20 19:25 09/30/20 07:37 Lorazepam Inj (*Crx) 2 Mg/Ml Vial IV PUSH 1 mg Q4H PRN Administration Anxiety Methadone HCl 10 mg 10/01/20 09:35 10/01/20 14:09 Methadone Hcl (*Crx) 10 Mg Tablet PO 10 mg Q8HR MAR Administration Methylprednisolone Sodium Succinate 30 mg 09/29/20 20:00 10/01/20 08:43 Methylprednisolone Sod Succ 40 Mg Vial IV PUSH 30 mg Q12H MAR Administration Metoprolol Tartrate 50 mg 09/30/20 09:00 10/01/20 16:11 Metoprolol Tartrate 50 Mg Tab PO 50 mg BID MAR Administration Prochlorperazine Michael
[2020-10-01] MEDS: HYDROmorphone HCL (*CRX) 4 MG TABLET 8 MG PO (17:56)
[2020-10-01] MEDS: GABAPENTIN 300 MG CAPSULE 600 MG PO (20:41)
[2020-10-02] MEDS: HYDROmorphone HCL (*CRX) 4 MG TABLET 8 MG PO ×4 (00:22→17:24)
[2020-10-02] MEDS: HYDROmorphone HCL INJ (*CRX) 1 MG/ML SYR 4 MG IV PUSH ×3 (01:09→04:17)
[2020-10-02] MEDS: methADONE HCL (*CRX) 10 MG TABLET PO ×3 (06:17→21:45)
[2020-10-02] MEDS: HYDROmorphone HCL INJ (*CRX) 2 MG/ML VIAL 4 MG IV PUSH ×6 (08:30→20:10)
[2020-10-02 08:35] VITALS: PULSE 82
[2020-10-02] MEDS: AMIODARONE HCL 200 MG TABLET PO (08:35)
[2020-10-02] MEDS: GABAPENTIN 300 MG CAPSULE 600 MG PO ×4 (08:35→20:11)
[2020-10-02 08:36] VITALS: PULSE 82
[2020-10-02] MEDS: METOPROLOL TARTRATE 50 MG TAB PO ×2 (08:36→17:21)
[2020-10-02] MEDS: predniSONE 20 MG TABLET PO ×2 (08:36→17:24)
--- NOTE | 2020-10-02 17:05 | PM.IMPN ---
Progress Note: A&P Assessment and Plan (1) Palliative care by specialist: Code(s): Z51.5 - Encounter for palliative care Status: Acute Assessment and Plan: Meets inpatient hospice criteria due to requirement for continuous IV hydromorphone for uncontrolled pain hydromorphone 2 mg per hour and 2 mg hourly as needed for analgesia with rapid titration to comfort Hydromorphone increased to 4mg/hr 8/3 AM, 5mg/hr 83 PM. , stopped 10/01 AM Hydromorphone 8mg PO q 4 hrs scheduled and 4mg IV q 1 hours prn, 10/02 PM latter changed to [employer]. Methadone 10mg TID 10/01 AM, 10mg q 6h 10/02 PM. Solu-Medrol 30 mg IV Q 12 hours changed to prednisone 20mg bid 10/01 PM. gabapentin 300 mg p.o. q.i.d., 10/01 incr to 600mg qid. remainder of palliative regimen as ordered Attempted transition to PO meds 10/01 AM. D/w pt and spouse at bedside (2) Lung cancer: Code(s): C34.90 - Malignant neoplasm of unspecified part of unspecified bronchus or lung Status: Acute (3) Bone metastasis: Code(s): C79.51 - Secondary malignant neoplasm of bone Status: Acute Subjective Date/time seen: 10/02/20 17:05 Interval history: Admitted inpatient hospice 09/29. 10/02: Had a good morning, then pain worsened. Moderately severe. Breakthrough hydromorphone requested about every 2 hours per staff and staff development coordinator. order planner reported nausea earlier today. Pain in right hip, neck, left osuna. Reports suicidal ideation. Bowels moved 8 PM. Review of Systems Review of Systems: All systems reviewed & are unremarkable except as noted in HPI and below Exam Narrative: HEENT: Thin elderly gentleman who appears older than his stated age. HEENT: PERRL, sclerae nonicteric, pharyngeal mucosa pink and intact NECK: No JVD, adenopathy, or thyromegaly CHEST: Clear to auscultation. Normal effort. HEART: NL S1/S2, regular, no murmur ABDOMEN: BS+, soft, nontender, no mass, no bruits EXTREMITIES: No cyanosis, edema, or clubbing NEUROLOGIC: CN intact and symmetric to inspection. MUSCULOSKELETAL: Tone and strength symmetric. PSYCH: Alert. Oriented to person, place, and time. Objective Data Vital Signs Vital Signs: Vital Signs - 24 hr 10/02/20 08:35 10/02/20 08:36 Pulse Rate 82 82 Intake/Output Intake/Output: Intake & Output 09/29/20 09/30/20 10/01/20 10/02/20 23:59 23:59 23:59 23:59 Intake Total 100 580 800 120 Balance 100 580 800 120 Meds/Results Medications: Active Medications Generic Name Dose Route Start Last Admin Trade Name Freq PRN Reason Stop Dose Admin Amiodarone HCl 200 mg 09/30/20 08:00 10/02/20 08:35 Amiodarone Hcl 200 Mg Tablet PO 200 mg DAILY@0800 [facility] Administration Bisacodyl 10 mg 09/29/20 19:25 Bisacodyl 10 Mg Suppository RECTAL DAILY PRN Constipation Gabapentin 600 mg 10/01/20 21:00 10/02/20 12:43 Gabapentin 300 Mg Capsule PO 600 mg QID [facility] Administration Glycopyrrolate 0.1 mg 09/29/20 19:27 Glycopyrrolate Inj (*Sp) 0.2 Mg/Ml Vial IV PUSH Q4H PRN secretions Hydromorphone HCl 8 mg 10/01/20 18:00 10/02/20 12:42 Hydromorphone Hcl (*Crx) 4 Mg Tablet PO 8 mg Q6H MAR Administration Hydromorphone HCl 4 mg 10/02/20 08:00 10/02/20 11:42 Hydromorphone Hcl Inj (*Crx) 2 Mg/Ml Vial IV PUSH 4 mg Q1H PRN Administration Pain Lorazepam 1 mg 09/29/20 19:25 09/30/20 07:37 Lorazepam Inj (*Crx) 2 Mg/Ml Vial IV PUSH 1 mg Q4H PRN Administration Anxiety Methadone HCl 10 mg 10/01/20 09:35 10/02/20 14:13 Methadone Hcl (*Crx) 10 Mg Tablet PO 10 mg Q8HR MAR Administration Metoprolol Tartrate 50 mg 10/02/20 09:00 10/02/20 08:36 Metoprolol Tartrate 50 Mg Tab PO 50 mg BID MAR Administration Prednisone 20 mg 10/02/20 09:00 10/02/20 08:36 Prednisone 20 Mg Tablet PO 20 mg BID MAR Administration Prochlorperazine Edisylate 10 mg 09/29/20 19:25 Prochlorperazine Edisylate 10 Mg/2 Ml Vial IV PUS
[2020-10-02 17:21] VITALS: PULSE 71
[2020-10-02] MEDS: SENNOSIDES 8.6 MG TABLET 17.2 MG PO (20:11)
[2020-10-03] MEDS: methADONE HCL (*CRX) 10 MG TABLET PO ×3 (06:01→22:49)
[2020-10-03 07:55] VITALS: O2SAT 94
[2020-10-03 08:27] VITALS: PULSE 74
[2020-10-03] MEDS: predniSONE 20 MG TABLET PO ×2 (08:27→16:27)
[2020-10-03] MEDS: PROCHLORPERAZINE EDISYLATE 10 MG/2 ML VIAL IV PUSH (08:27)
[2020-10-03] MEDS: HYDROmorphone HCL (*CRX) 4 MG TABLET 8 MG PO ×3 (08:27→16:26)
[2020-10-03] MEDS: METOPROLOL TARTRATE 50 MG TAB PO ×2 (08:27→16:26)
[2020-10-03] MEDS: GABAPENTIN 300 MG CAPSULE 600 MG PO ×4 (08:28→20:16)
[2020-10-03 08:29] VITALS: PULSE 74
[2020-10-03] MEDS: AMIODARONE HCL 200 MG TABLET PO (08:29)
[2020-10-03 16:26] VITALS: PULSE 70
--- NOTE | 2020-10-03 16:45 | PM.IMPN ---
Progress Note: A&P Assessment and Plan (1) Palliative care by specialist: Code(s): Z51.5 - Encounter for palliative care Status: Acute Assessment and Plan: Meets inpatient hospice criteria due to requirement for continuous IV hydromorphone for uncontrolled pain hydromorphone 2 mg per hour and 2 mg hourly as needed for analgesia with rapid titration to comfort Hydromorphone increased to 4mg/hr 8 AM, 5mg/hr 09/30 PM. , stopped 10/01 AM Hydromorphone 8mg PO q 4 hrs scheduled and 4mg IV q 1 hours prn, 10/02 PM latter changed to TREATER. Methadone 10mg TID 10/01 AM, 10mg q 6h 10/02 PM. Solu-Medrol 30 mg IV Q 12 hours changed to prednisone 20mg bid 10/01 PM. gabapentin 300 mg p.o. q.i.d., 10/01 incr to 600mg qid. remainder of palliative regimen as ordered Attempted transition to PO meds 10/01 AM. 10/03: utilized 49.2mg of TREATER hydromorphone since last PM; 48mg PO hydromorphone per 24 hr; 30mg methadone per 24 hr is over 840 MME per 24 hr => methadone 30mg/day, hydromorphone 72mg, continue TREATER 4mg prn D/w pt and spouse at bedside; plan is for discharge home in 24-48 hours dependent upon pain control (2) Lung cancer: Code(s): C34.90 - Malignant neoplasm of unspecified part of unspecified bronchus or lung Status: Acute (3) Bone metastasis: Code(s): C79.51 - Secondary malignant neoplasm of bone Status: Acute Subjective Date/time seen: 10/03/20 16:45 Interval history: Admitted inpatient hospice 09/29. 10/03: Pain 4-5/10, much more tolerable. Slept much better last night. Eating about 50% of diet. Pain in right hip, neck, left osuna. Reports suicidal ideation. Bowels moved 8 PM. Review of Systems Review of Systems: All systems reviewed & are unremarkable except as noted in HPI and below Exam Narrative: HEENT: Thin elderly gentleman who appears older than his stated age. HEENT: PERRL, sclerae nonicteric, pharyngeal mucosa pink and intact NECK: No JVD, adenopathy, or thyromegaly CHEST: Clear to auscultation. Normal effort. HEART: NL S1/S2, regular, no murmur ABDOMEN: BS+, soft, nontender, no mass, no bruits EXTREMITIES: No cyanosis, edema, or clubbing NEUROLOGIC: CN intact and symmetric to inspection. MUSCULOSKELETAL: Tone and strength symmetric. PSYCH: Alert. Oriented to person, place, and time. Objective Data Vital Signs Vital Signs: Vital Signs - 24 hr 10/02/20 17:21 10/03/20 07:55 10/03/20 08:27 Pulse Rate 71 74 Pulse Oximetry 94 10/03/20 08:29 10/03/20 16:26 Pulse Rate 74 70 Pulse Oximetry Intake/Output Intake/Output: Intake & Output 09/30/20 10/01/20 10/02/20 10/03/20 23:59 23:59 23:59 23:59 Intake Total 580 800 360 270 Balance 580 800 360 270 Meds/Results Medications: Active Medications Generic Name Dose Route Start Last Admin Trade Name Freq PRN Reason Stop Dose Admin Amiodarone HCl 200 mg 09/30/20 08:00 10/03/20 08:29 Amiodarone Hcl 200 Mg Tablet PO 200 mg DAILY@0800 [facility] OF [facility] Administration Bisacodyl 10 mg 09/29/20 19:25 Bisacodyl 10 Mg Suppository RECTAL DAILY PRN Constipation Gabapentin 600 mg 10/01/20 21:00 10/03/20 16:26 Gabapentin 300 Mg Capsule PO 600 mg QID MAR Administration Glycopyrrolate 0.1 mg 09/29/20 19:27 Glycopyrrolate Inj (*Sp) 0.2 Mg/Ml Vial IV PUSH Q4H PRN secretions Hydromorphone HCl 8 mg 10/02/20 17:06 10/03/20 16:26 Hydromorphone Hcl (*Crx) 4 Mg Tablet PO 8 mg Q4H MAR Administration Hydromorphone HCl 30 mg/ 30 mls @ 0 mls/hr 10/02/20 19:25 10/03/20 06:23 Sodium Chloride IV CONT 0 mg/hr PRN PRN 0 mls/hr Pain management FOR PAIN 7-10 Administration Protocol 0 MG/HR Lorazepam 1 mg 09/29/20 19:25 09/30/20 07:37 Lorazepam Inj (*Crx) 2 Mg/Ml Vial IV PUSH 1 mg Q4H PRN Administration Anxiety Methadone HCl 10 mg 10/01/20 09:35 10/03/20 16:15 Methadone Hcl (*Crx) 10 Mg Tablet PO 10 mg Q8HR MAR Administration
[2020-10-03 19:08] VITALS: PULSE 68; RESP 14
[2020-10-03] MEDS: SENNOSIDES 8.6 MG TABLET 17.2 MG PO (20:16)
[2020-10-03] MEDS: HYDROmorphone HCL (*CRX) 4 MG TABLET 12 MG PO (20:16)
[2020-10-03 22:55] VITALS: BP 119/77; PULSE 74; RESP 18; TEMP 36.1; O2SAT 96
[2020-10-04] MEDS: HYDROmorphone HCL (*CRX) 4 MG TABLET 12 MG PO ×6 (00:57→20:34)
[2020-10-04] MEDS: methADONE HCL (*CRX) 10 MG TABLET PO ×3 (06:15→22:45)
[2020-10-04 08:00] VITALS: O2SAT 96
[2020-10-04 09:28] VITALS: PULSE 82
[2020-10-04] MEDS: GABAPENTIN 300 MG CAPSULE 600 MG PO ×4 (09:28→20:33)
[2020-10-04] MEDS: METOPROLOL TARTRATE 50 MG TAB PO ×2 (09:28→17:52)
[2020-10-04] MEDS: predniSONE 20 MG TABLET PO ×2 (09:29→17:52)
--- NOTE | 2020-10-04 16:10 | PM.IMPN ---
Progress Note: A&P Assessment and Plan (1) Palliative care by specialist: Code(s): Z51.5 - Encounter for palliative care Status: Acute Assessment and Plan: Meets inpatient hospice criteria due to requirement for continuous IV hydromorphone for uncontrolled pain hydromorphone 2 mg per hour and 2 mg hourly as needed for analgesia with rapid titration to comfort Hydromorphone increased to 4mg/hr 8 AM, 5mg/hr 8 PM. , stopped 10/01 AM Hydromorphone 8mg PO q 4 hrs scheduled and 4mg IV q 1 hours prn, 10/02 PM latter changed to BILLING REP. Methadone 10mg TID 10/01 AM, 10mg q 6h 10/02 PM. Solu-Medrol 30 mg IV Q 12 hours changed to prednisone 20mg bid 10/01 PM. gabapentin 300 mg p.o. q.i.d., 10/01 incr to 600mg qid. remainder of palliative regimen as ordered Attempted transition to PO meds 10/01 AM. 10/03: utilized 49.2mg of BILLING REP hydromorphone since last PM; 48mg PO hydromorphone per 24 hr; 30mg methadone per 24 hr is over 840 MME per 24 hr => methadone 30mg/day, hydromorphone 72mg, continue BILLING REP 4mg prn 10/04: as he utilized only 18mg BILLING REP hydromorphone in last 24 hrs and this is day 4 for methadone, will continue current regimen. D/w pt and spouse at bedside; plan is for discharge home in 24-48 hours dependent upon pain control (2) Lung cancer: Code(s): C34.90 - Malignant neoplasm of unspecified part of unspecified bronchus or lung Status: Acute (3) Bone metastasis: Code(s): C79.51 - Secondary malignant neoplasm of bone Status: Acute Subjective Date/time seen: 10/04/20 16:10 Interval history: Admitted inpatient hospice 09/29. 10/04: Pain 4-5/10, much more tolerable. Used only 18mg hydromorphone in past 24 hours. Eating about 50% of diet. Pain in right hip, neck, left osuna, ribs with breathing. Still apprehensive about going home, but looking forward to it as well. Bowels moved 8/2 PM. Review of Systems Review of Systems: All systems reviewed & are unremarkable except as noted in HPI and below Exam Narrative: HEENT: Thin elderly gentleman who appears older than his stated age. HEENT: PERRL, sclerae nonicteric, pharyngeal mucosa pink and intact NECK: No JVD, adenopathy, or thyromegaly CHEST: Clear to auscultation. Normal effort. HEART: NL S1/S2, regular, no murmur ABDOMEN: BS+, soft, nontender, no mass, no bruits EXTREMITIES: No cyanosis, edema, or clubbing NEUROLOGIC: CN intact and symmetric to inspection. MUSCULOSKELETAL: Tone and strength symmetric. PSYCH: Alert. Oriented to person, place, and time. Objective Data Vital Signs Vital Signs: Vital Signs - 24 hr 10/03/20 16:26 10/03/20 19:08 10/03/20 22:55 Temperature 96.9 F L Pulse Rate 70 68 74 Respiratory Rate 14 18 Blood Pressure 119/77 Pulse Oximetry 96 10/04/20 08:00 10/04/20 09:28 Temperature Pulse Rate 82 Respiratory Rate Blood Pressure Pulse Oximetry 96 Intake/Output Intake/Output: Intake & Output 10/01/20 10/02/20 10/03/20 10/04/20 23:59 23:59 23:59 23:59 Intake Total 800 360 540 480 Balance 800 360 540 480 Meds/Results Medications: Active Medications Generic Name Dose Route Start Last Admin Trade Name Freq PRN Reason Stop Dose Admin Bisacodyl 10 mg 09/29/20 19:25 Bisacodyl 10 Mg Suppository RECTAL DAILY PRN Constipation Gabapentin 600 mg 10/01/20 21:00 10/04/20 13:12 Gabapentin 300 Mg Capsule PO 600 mg QID MAR Administration Glycopyrrolate 0.1 mg 09/29/20 19:27 Glycopyrrolate Inj (*Sp) 0.2 Mg/Ml Vial IV PUSH Q4H PRN secretions Hydromorphone HCl 12 mg 10/03/20 21:00 10/04/20 14:18 Hydromorphone Hcl (*Crx) 4 Mg Tablet PO 12 mg Q4H MAR Administration Hydromorphone HCl 30 mg/ 30 mls @ 0 mls/hr 10/02/20 19:25 10/03/20 19:08 Sodium Chloride IV CONT 0 mg/hr PRN PRN 0 mls/hr Pain management FOR PAIN 7-10 Administration Protocol 0 MG/HR Lorazepam 1 mg 09/29/20 19:25 09/30/20 07:37 Lorazepam Inj (
[2020-10-04 17:52] VITALS: PULSE 78
[2020-10-04] MEDS: SENNOSIDES 8.6 MG TABLET 17.2 MG PO (20:34)
[2020-10-04 21:08] VITALS: BP 125/71; PULSE 69; RESP 20; TEMP 36.7; O2SAT 96
[2020-10-05] MEDS: HYDROmorphone HCL (*CRX) 4 MG TABLET 12 MG PO ×6 (00:23→22:02)
[2020-10-05] MEDS: LORazepam INJ (*CRX) 2 MG/ML VIAL 1 MG IV PUSH (04:46)
[2020-10-05] MEDS: HYDROmorphone HCL INJ (*CRX) 1 MG/ML SYR 4 MG IV PUSH (04:59)
[2020-10-05] MEDS: methADONE HCL (*CRX) 10 MG TABLET PO ×3 (09:17→22:02)
[2020-10-05] MEDS: GABAPENTIN 300 MG CAPSULE 600 MG PO ×4 (09:18→22:03)
[2020-10-05] MEDS: METOPROLOL TARTRATE 50 MG TAB PO ×2 (09:18→18:23)
[2020-10-05] MEDS: predniSONE 20 MG TABLET PO ×2 (09:19→18:23)
--- NOTE | 2020-10-05 16:15 | PM.IMPN ---
Progress Note: A&P Assessment and Plan (1) Palliative care by specialist: Code(s): Z51.5 - Encounter for palliative care Status: Acute Assessment and Plan: Meets inpatient hospice criteria due to requirement for continuous IV hydromorphone for uncontrolled pain hydromorphone 2 mg per hour and 2 mg hourly as needed for analgesia with rapid titration to comfort Hydromorphone increased to 4mg/hr 8 AM, 5mg/hr 09/30 PM. , stopped 10/01 AM Hydromorphone 8mg PO q 4 hrs scheduled and 4mg IV q 1 hours prn, 10/02 PM latter changed to VACUUM KETTLE COOK. Methadone 10mg TID 10/01 AM, 10mg q 6h 10/02 PM. Solu-Medrol 30 mg IV Q 12 hours changed to prednisone 20mg bid 10/01 PM. gabapentin 300 mg p.o. q.i.d., 10/01 incr to 600mg qid. remainder of palliative regimen as ordered Attempted transition to PO meds 10/01 AM. 10/03: utilized 49.2mg of VACUUM KETTLE COOK hydromorphone since last PM; 48mg PO hydromorphone per 24 hr; 30mg methadone per 24 hr is over 840 MME per 24 hr => methadone 30mg/day, hydromorphone 72mg, continue VACUUM KETTLE COOK 4mg prn 10/04: as he utilized only 18mg VACUUM KETTLE COOK hydromorphone in last 24 hrs and this is day 4 for methadone, will continue current regimen. 10/05: Day 5 methadone and doing much better with pain control. No further adjustments. D/w son at bedside. (2) Lung cancer: Code(s): C34.90 - Malignant neoplasm of unspecified part of unspecified bronchus or lung Status: Acute (3) Bone metastasis: Code(s): C79.51 - Secondary malignant neoplasm of bone Status: Acute Subjective Date/time seen: 10/05/20 16:15 Interval history: Admitted inpatient hospice 09/29. 10/05: Pain under 5/10. Didn't sleep well last night, but had a good day. Alert and talking to son and spouse intermittently. Used only ~7 mg hydromorphone in past 24 hours. Pain in right hip, neck, left osuna, ribs with breathing. Appetite remains fair. Bowels moved 8/2 PM. Review of Systems Review of Systems: All systems reviewed & are unremarkable except as noted in HPI and below Exam Narrative: HEENT: Thin elderly gentleman who appears older than his stated age. HEENT: PERRL, sclerae nonicteric, pharyngeal mucosa pink and intact NECK: No JVD, adenopathy, or thyromegaly CHEST: Clear to auscultation. Normal effort. HEART: NL S1/S2, regular, no murmur ABDOMEN: BS+, soft, nontender, no mass, no bruits EXTREMITIES: No cyanosis, edema, or clubbing NEUROLOGIC: CN intact and symmetric to inspection. MUSCULOSKELETAL: Tone and strength symmetric. PSYCH: Alert. Oriented to person, place, and time. Objective Data Vital Signs Vital Signs: Vital Signs - 24 hr 10/04/20 17:52 10/04/20 21:08 Temperature 98.1 F Pulse Rate 78 69 Respiratory Rate 20 Blood Pressure 125/71 Pulse Oximetry 96 Intake/Output Intake/Output: Intake & Output 10/02/20 10/03/20 10/04/20 10/05/20 23:59 23:59 23:59 23:59 Intake Total 360 540 720 120 Balance 360 540 720 120 Meds/Results Medications: Active Medications Generic Name Dose Route Start Last Admin Trade Name Freq PRN Reason Stop Dose Admin Bisacodyl 10 mg 09/29/20 19:25 Bisacodyl 10 Mg Suppository RECTAL DAILY PRN Constipation Gabapentin 600 mg 10/01/20 21:00 10/05/20 13:26 Gabapentin 300 Mg Capsule PO 600 mg QID MAR Administration Glycopyrrolate 0.1 mg 09/29/20 19:27 Glycopyrrolate Inj (*Sp) 0.2 Mg/Ml Vial IV PUSH Q4H PRN secretions Hydromorphone HCl 12 mg 10/03/20 21:00 10/05/20 13:26 Hydromorphone Hcl (*Crx) 4 Mg Tablet PO 12 mg Q4H MAR Administration Hydromorphone HCl 30 mg/ 30 mls @ 0 mls/hr 10/02/20 19:25 10/03/20 19:08 Sodium Chloride IV CONT 0 mg/hr PRN PRN 0 mls/hr Pain management FOR PAIN 7-10 Administration Protocol 0 MG/HR Lorazepam 1 mg 09/29/20 19:25 10/05/20 04:46 Lorazepam Inj (*Crx) 2 Mg/Ml Vial IV PUSH 1 mg Q4H PRN Administration Anxiety Methadone HCl 10 mg 10/01/20 09:35 10/05/20 13:26 Me
[2020-10-05 20:00] VITALS: BP 115/75; PULSE 61; RESP 16; TEMP 36.6; O2SAT 93
[2020-10-05] MEDS: SENNOSIDES 8.6 MG TABLET 17.2 MG PO (22:04)
[2020-10-06] MEDS: HYDROmorphone HCL (*CRX) 4 MG TABLET 12 MG PO ×5 (00:41→16:49)
[2020-10-06] MEDS: methADONE HCL (*CRX) 10 MG TABLET PO ×2 (06:09→13:05)
[2020-10-06] MEDS: BISACODYL 10 MG SUPPOSITORY RECTAL (06:19)
[2020-10-06 08:00] VITALS: O2SAT 90
[2020-10-06 08:23] VITALS: PULSE 71
[2020-10-06] MEDS: METOPROLOL TARTRATE 50 MG TAB PO ×2 (08:23→16:49)
[2020-10-06] MEDS: predniSONE 20 MG TABLET PO ×2 (08:23→16:49)
[2020-10-06] MEDS: GABAPENTIN 300 MG CAPSULE 600 MG PO ×3 (08:23→16:48)
[2020-10-06 14:13] VITALS: BP 112/58; PULSE 75; RESP 16; TEMP 36.2; O2SAT 97
--- NOTE | 2020-10-06 15:21 | PM.DS ---
DS: Admitting Diagnosis Admitting Diagnosis Lung cancer with bone metastases and uncontrolled pain DS: Discharge Diagnosis Discharge Diagnosis (1) Palliative care by specialist: Code(s): Z51.5 - Encounter for palliative care Status: Acute Assessment and Plan: Met inpatient hospice criteria due to requirement for continuous IV hydromorphone for uncontrolled pain hydromorphone 2 mg per hour and 2 mg hourly as needed for analgesia with rapid titration to comfort Hydromorphone increased to 4mg/hr 09/30 AM, 5mg/hr 09/30 PM. , stopped 10/01 AM Hydromorphone 8mg PO q 4 hrs scheduled and 4mg IV q 1 hours prn, 10/02 PM latter changed to FLIGHT ATTENDANT RAMP. Methadone 10mg TID 10/01 AM, 10mg q 6h 10/02 PM. Solu-Medrol 30 mg IV Q 12 hours changed to prednisone 20mg bid 10/01 PM. gabapentin 300 mg p.o. q.i.d., 10/01 incr to 600mg qid. remainder of palliative regimen as ordered Attempted transition to PO meds 10/01. 10/03: utilized 49.2mg of FLIGHT ATTENDANT RAMP hydromorphone since last PM; 48mg PO hydromorphone per 24 hr; 30mg methadone per 24 hr is over 840 MME per 24 hr => methadone 30mg/day, hydromorphone 72mg, continue FLIGHT ATTENDANT RAMP 4mg prn 10/04: as he utilized only 18mg FLIGHT ATTENDANT RAMP hydromorphone in last 24 hrs and this is day 4 for methadone, will continue current regimen. 10/05: Day 5 methadone and doing much better with pain control. No further adjustments. D/w son at bedside. (2) Lung cancer: Code(s): C34.90 - Malignant neoplasm of unspecified part of unspecified bronchus or lung Status: Acute (3) Bone metastasis: Code(s): C79.51 - Secondary malignant neoplasm of bone Status: Acute DS: Summary Hospital Course Hospital Course: Admitted to inpatient hospice service 09/29 due to uncontrolled pain. Hydromorphone cotinuous infusion initially at 2mg/hr was increased incrementally to 5mg/hr to achieve adequate analgesia. On 10/01, he was transitioned to PO regimen in anticipation of discharge to home. This required further adjustment with IVP hydromorphone for breakthrough pain. FLIGHT ATTENDANT RAMP was initiated. By day of discharge, he required only one breakthrough dose from the FLIGHT ATTENDANT RAMP and wished to go home. We discussed his situation by phone late morning and he discussed with his family. After all involved that he could be discharged to home with and family as caregivers, [facility] was contacted and ambulance transportation arranged. During his hospital stay, he was able to stand with assistance and walk with a walker with standby assistance. He was eating approximately 50% of his food at each meal. 09/29/[address] IMPRESSION: 1. 7.7 cm expansile and destructive likely metastatic mass centered at the right posterior elements of L1 which invades the central canal is mild to moderate stenosis with additional severe and moderate stenosis of the right T12-L1 and L1-L2 neural foramina respectively. 2. Several additional smaller lytic bone lesions suspicious for metastatic disease. 3. Minimal underlying lumbar spondylosis. 4. Mild bilateral hydroureteronephrosis which suggests outlet obstruction however a 2 mm stone is identified at the right kidney and could not exclude obstructing stones in the distalmost and visualized portions of the ureters. 07/26/[address] IMPRESSION: 1. Right middle lobe mass likely primary lung cancer; recommend CT-guided biopsy. 2. Scattered osteolytic disease. 07/13/[address] IMPRESSION: 1. Sizable osteolytic lesion in C2 vertebral body right side, smaller in C3. Likely metastatic disease or multiple myeloma. 2. Mild to moderate cervical spondylosis. Time Spent with Patient Time attestation: Total time spent providing and/or coordinating discharge services: Exam Narrative: BP 112/58, P 75, T 97.2 Respirations non-labored Alert. Ox4. Speaks in complete sentences. Thought process coherent and goal-directed. Discharge Plan Discharge Discharging Clinician: Jon Butler Patient Disposition: Hospice - Home Activit
[2020-10-06 16:49] VITALS: PULSE 76
[2020-10-06 17:27] VITALS: PULSE 76; RESP 12
--- OUTSIDE RECORDS SUMMARY | 2020-10-09 08:23 | XMS_ITS | Continuity of Care Document ---
:1950 Author Organization [facility] Care Team Providers Name Role Phone [facility] Unavailable Unavailable Medications Combined list of outpatient medications from [facility] Defense and [facility] Affairs facilities. Medications provided include 1) outpatient medications from [facility], and 2) patient-reported medications. Medication Details Route Status Patient Prescription Prescription Last Ordering Order Source Instructions Expires Number Dispense Provider Date Date CYCLOBENZAP Active [id number] CARI, 08/22 / Pharmac RINE HCL 2020 y Data (cyclobenza Transac jani HCl), tion 10 MG, Service TABLET, Facilit ORAL, y [employer] 1000 ea. BOTTLE CYCLOBENZAP Active [id number] FACUNDO, 06/28 4/ Pharmac RINE HCL 2020 y Data (cyclobenza Transac jani HCl), tion 5 MG, Service TABLET, Facilit ORAL, y [employer] 100 ea. BOTTLE DEXAMETHASO Active [id number] JOHNZT / Pharmac NE 1 2020 y Data (DEXA
== END 2020-10-06 16:56 | disposition hospice, home (50) | DRG 951 ==
PROVIDERS: Admitting Provider Internal Medicine; PCP Family Medicine; Visit Provider Internal Medicine
DX: Z51.5 Encounter for palliative care (principal); C34.90 Malignant neoplasm of unspecified part of unspecified bronchus or lung; C79.51 Secondary malignant neoplasm of bone; I48.20 Chronic atrial fibrillation, unspecified; I10 Essential (primary) hypertension; Z79.899 Other long term (current) drug therapy
CPT/HCPCS: A9270; J0780; J1170; J2060; J2920; J7512

== ENCOUNTER 2020-10-12 02:27 | Emergency (ER) | payer OTHER, MEDICARE, SELFPAY ==
[2020-10-12 02:29] VITALS: BP 125/63; PULSE 60; RESP 18; TEMP 36.6; O2SAT 97
[2020-10-12] MEDS: ONDANSETRON INJ 4 MG/2 ML VIAL IV PUSH (03:28)
[2020-10-12] MEDS: MORPHINE SULFATE (*CRX) 4 MG/ML INJ IV PUSH (03:28)
[2020-10-12] MEDS: SODIUM CHLORIDE 0.9% IV 1,000 ML 999 ML IV CONT (03:28)
[2020-10-12 03:29] LABS: Hematocrit 35.4 % (42.0-52.0); Hemoglobin 10.8 g/dL (14.0-18.0); Mean Corpuscular HGB Conc 30.5 g/dl (32-36); Mean Corpuscular Hemoglobin 26.9 pg (26-34); Mean Corpuscular Volume 88.1 fl (80-100); Mean Platelet Volume 7.8 fl (7.4-10.4); Platelet Count Result 145 k/mm3 (150-375); Red Blood Count 4.02 M/mm3 (4.6-6.20); Red Cell Distribution Width 15.4 % (11.5-14.5)
[2020-10-12 03:33] LABS: Alanine Aminotransferase 21 U/L (4-50); Albumin Level 3.2 g/dL (3.5-5.1); Alkaline Phosphatase 126 U/L (38-126); Anion Gap 4 mmol/L (8-16); Aspartate Amino Transferase 21 U/L (17-59); Bilirubin,Total 0.7 mg/dL (0.2-1.3); Blood Urea Nitrogen 37 mg/dL (9-20); Carbon Dioxide 35 mmol/L (22-30); Chloride 88 mmol/L (98-107); Estimated CRCL calculation 54 ml/min; Estimated Glomerular Filt Rate 60; Glucose 124 mg/dL (65-110); Potassium 4.5 mmol/L (3.4-5.0); Sodium 127 mmol/L (137-145)
--- NOTE | 2020-10-12 03:37 | ED.GENADULT ---
HPI - General Adult General Chief complaint: Altered Mental Status Stated complaint: unresponsive Time Seen by Provider: 10/12/20 02:36 History of Present Illness HPI narrative: Patient is a 70-year-old gentleman who presents emerged department chief complaint of unresponsiveness. Patient has history of metastatic lesions to the bone and has been undergoing hospice therapy. Patient tonight was less responsive and the family has reached a point that they do not feel that they can care for him at the house anymore. They called EMS and had the patient transported to the emergency department. The family at this time is wanting inpatient hospice care. Related Data Home Medications Medication Instructions Recorded Confirmed metoprolol tartrate 50 mg PO BID 09/29/20 09/30/20 prochlorperazine maleate 10 mg PO Q6H PRN 09/30/20 09/30/20 Allergies Allergy/AdvReac Type Severity Reaction Status Date / Time No Known Allergies Allergy Verified 09/29/20 17:16 Review of Systems Review of Systems: A 10 system review of systems was completed on the patient and is negative except for what is stated in the HPI. Nursing and ancillary documentation was reviewed. [facility] Past Medical History Medical History Chronic atrial fibrillation, unspecified Essential hypertension Lung cancer Prostate cancer 2013 Surgical History Surgical History History of robot-assisted laparoscopic radical prostatectomy 2014 Hx laparoscopic cholecystectomy 2018 Family History Family History Father Malignant neoplasm of prostate Mother Pacemaker Social History Social History Smoking status: Never smoker Alcohol intake: current Substance use: never Additional living arrangements comments: Spouse Additional occupation/education comments: retired from [employer], officer in IT Gender identity (if verbalized by the patient): Male Spiritual care concerns: No Exam Narrative: GENERAL: Ill-appearing, well-nourished, and in no acute distress. HEAD: Normocephalic, atraumatic. EYES: PERRLA and EOMI. ENT: Nares clear, no rhinorrhea or epistaxis. Mucous membranes moist. NECK: Supple. Patient is in a cervical collar CHEST: Clear to auscultation. No respiratory distress. HEART: Regular rate and rhythm. No murmur heard. Normal peripheral pulses. ABDOMEN: Soft, nontender, nondistended, normal active bowel sounds. EXTREMITIES: Normal range of motion. No edema. SKIN: Warm, dry, no rash. NEURO: No focal deficits. Alert slow to respond. PSYCH: Normal mood and affect. Course Vital Signs Vital signs: Vital Signs Temperature 36.6 C 10/12/20 02:29 Pulse Rate 60 10/12/20 02:29 Respiratory Rate 18 10/12/20 02:29 Blood Pressure 125/63 10/12/20 02:29 Pulse Oximetry 97 10/12/20 02:29 Temperature 36.6 C 10/12/20 02:29 Pulse Rate 60 10/12/20 02:29 Respiratory Rate 18 10/12/20 02:29 Blood Pressure 125/63 10/12/20 02:29 Pulse Oximetry 97 10/12/20 02:29 Medical Decision Making Vital Signs Vital Signs: Vital Signs Temperature 36.6 C 10/12/20 02:29 Pulse Rate 60 10/12/20 02:29 Respiratory Rate 18 10/12/20 02:29 Blood Pressure 125/63 10/12/20 02:29 Pulse Oximetry 97 10/12/20 02:29 Temperature 36.6 C 10/12/20 02:29 Pulse Rate 60 10/12/20 02:29 Respiratory Rate 18 10/12/20 02:29 Blood Pressure 125/63 10/12/20 02:29 Pulse Oximetry 97 10/12/20 02:29 Lab Data Result diagrams: 10/12/20 03:12 10/12/20 03:12 Labs: Lab Results 10/12/20 10/12/20 Range/Units 03:12 03:12 WBC 29.0 H (4.5-10.0) K/mm3 RBC 4.02 L (4.6-6.20) M/mm3 Hgb 10.8 L (14.0-18.0) g/dL Hct 35.4 L (42.0-5
[2020-10-12 03:49] LABS: Band Neutrophils Percent 4 % (0-6); Lymphocytes Absolute Manual 3.48 K/mm3 (1.1-4.5); Monocytes Absolute Manual 1.16 K/mm3 (0.1-0.90); Monocytes Percent Manual 4 % (3-9); Neutrophils Absolute Manual 24.36 K/mm3 (1.3-6.7); Neutrophils Percent Manual 80 % (46-73); Total Cells Counted 100
[2020-10-12 03:50] LABS: Atypical Lymphocytes Present
== END 2020-10-12 04:20 | disposition hospice, inpatient (51) ==
PROVIDERS: Emergency Provider Emergency Medicine; PCP Family Medicine
DX: C34.90 Malignant neoplasm of unspecified part of unspecified bronchus or lung (principal); C79.51 Secondary malignant neoplasm of bone; R41.82 Altered mental status, unspecified; I48.20 Chronic atrial fibrillation, unspecified; I10 Essential (primary) hypertension; Z85.46 Personal history of malignant neoplasm of prostate
CPT/HCPCS: 36415; 80053; 85025; 96361; 96374; 96375; 99285; J2270; J2405; J7030

== ENCOUNTER 2020-10-12 04:13 | HOS | payer OTHER, MEDICARE, SELFPAY ==
--- OUTSIDE RECORDS SUMMARY | 2020-10-12 04:31 | XMS_ITS | Continuity of Care Document ---
:[address] [facility] Care Team Providers Name Role Phone [facility] Unavailable Unavailable Medications Combined list of outpatient medications from [facility] of Defense and Veterans Affairs facilities. Medications provided include 1) outpatient medications from [facility] 15 months, and 2) patient-reported medications. Medication Details Route Status Patient Prescription Prescription Last Ordering Order Source Instructions Expires Number Dispense Provider Date Date CYCLOBENZAP Active [id number] CARI, 08/22 / Pharmac RINE HCL 2020 y Data (cyclobenza Transac jani HCl), tion 10 MG, Service TABLET, Facilit ORAL, y [employer]., 1000 ea. BOTTLE CYCLOBENZAP Active [id number] FACUNDO, 06/28 4/ Pharmac RINE HCL 2020 y Data (cyclobenza Transac jani HCl), tion 5 MG, Service TABLET, Facilit ORAL, y [employer]., 100 ea. BOTTLE DEXAMETHASO Active [id number] JOHNZT / Pharmac NE 1 2020 y Data (DEXA
--- NOTE | 2020-10-12 05:10 | PC.NURSE ---
LATE ENTRY This note is being entered to document information to the patient's record. The following information was omitted on [], [facility] [].
[2020-10-12 05:54] VITALS: BMI 22.6
[2020-10-12 07:27] VITALS: PULSE 60; RESP 12
[2020-10-12] MEDS: HYDROmorphone HCL/PF (*CRX) 50 MG in SODIUM CHLORIDE 0.9% IV 95 ML 8 MG IV CONT ×2 (07:27→18:07)
--- NOTE | 2020-10-12 07:55 | ADMGEN ---
This patient, Kavin Ansari, was admitted to 3 [facility] Surg Room 318-01. Patient/family oriented to hospital policies and general routines including ID bracelet, bed and alarms, visiting hours, pain management, procedures, bathroom and other care routines, personal items, smoking policy, room service/diet, and visiting hours. Information on how to activate the Rapid Response Team has been discussed. Patient/Family are encouraged to report perceived risks to care and to ask questions if they do not understand what they are told or what they should do.
[2020-10-12 08:00] VITALS: O2SAT 92
--- NOTE | 2020-10-12 08:00 | PC.NURSE ---
Has cervical collar on
--- NOTE | 2020-10-12 13:40 | PM.IMHP ---
H&P: HPI History of Present Illness Date/Time: 10/12/20 13:40 Chief Complaint: uncontrolled pain Narrative: 70 y/o m, lifetime nonsmoker, was dx with lung cancer and bone mets in mid-July,. He underwent chemo and radiation with poor tolerance. Opted for comfort care with hospice. Was inpatient 09/29-10/06 and achieved excellent pain control. He had a few good days at home and was able to see family and friends. Yesterday he began having brief jerking movements of his extremities. He became more confused and refused to take his PO meds. His spouse was able to get one dose (unknown amount) of SL liquid morphine given, but his pain was not controlled. He presented to the ED in pain (unable to quantify) and with restlessness. One dose of IV morphine 4mg mitigated his pain. He remained comfortable but confused with decreased myoclonic jerks overnight. Until last PM he was continent and able to transfer from bed to wheelchair with assist of one. He was eating a fair amount and was continent of bowel and bladder until last PM. Yesterday, he ate only a few bites of food and drank only a few sips of liquid. PPS was 30. Current PPS is 20. Hx was obtained from spouse who is at bedside. Review of Systems Review of Systems: ROS unobtainable: Yes unobtainable due to medical condition PMFSH Past Medical History Medical History Chronic atrial fibrillation, unspecified Essential hypertension Lung cancer Prostate cancer 2013 Surgical History Surgical History History of robot-assisted laparoscopic radical prostatectomy 2014 Hx laparoscopic cholecystectomy 2018 Family History Family History Father Malignant neoplasm of prostate Mother Pacemaker Social History Social History Smoking status: Never smoker Alcohol intake: current Substance use: never Additional living arrangements comments: Spouse Additional occupation/education comments: retired from [employer], officer in IT Gender identity (if verbalized by the patient): Male Spiritual care concerns: No Meds Home Medications and Allergies Home Medications Medication Instructions Recorded Confirmed Type metoprolol tartrate 50 mg PO BID 09/29/20 09/30/20 History prochlorperazine maleate 10 mg PO Q6H PRN 09/30/20 09/30/20 History bisacodyl 10 mg RECTAL DAILY PRN #4 ea 10/05/20 Rx gabapentin [Neurontin] 600 mg PO QID #16 cap 10/05/20 Rx hydromorphone 8 mg PO Q2H PRN #10 tablet 10/05/20 Rx hydromorphone 12 mg PO Q4H #72 tablet 10/05/20 Rx lorazepam 0.5 mg PO Q6H PRN #10 tablet 10/05/20 Rx methadone 10 mg PO Q8HR #12 tablet 10/05/20 Rx prednisone 20 mg PO BID #8 tablet 10/05/20 Rx promethazine 25 mg PO Q6H PRN #10 tablet 10/05/20 Rx sennosides [Senokot] 17.2 mg PO HS #8 tablet 10/05/20 Rx Allergies Allergy/AdvReac Type Severity Reaction Status Date / Time No Known Allergies Allergy Verified 09/29/20 17:16 Vital Signs Vital Signs - 24 hr 10/12/20 07:27 Pulse Rate 60 Respiratory Rate 12 Exam Narrative: HEENT: Pupils small and sluggish, sclerae nonicteric, pharyngeal mucosa pink and intact NECK: Hard cervical collar in place CHEST: Clear to auscultation. Normal effort. HEART: NL S1/S2, regular, no murmur ABDOMEN: BS hypoactive, soft, nontender, no mass, no bruits EXTREMITIES: No cyanosis, edema, or clubbing NEUROLOGIC: CN intact and symmetric to inspection. MUSCULOSKELETAL: Tone and strength symmetric. PSYCH: Drowsy but arouses easily. Oriented to person only. Intermittent myoclonic jerks of extremities. Assessment and Plan Assessment and plan (1) Palliative care by specialist: Code(s): Z51.5 - Encounter for palliative care Status: Acute Assessment and Plan: Meets hospice inpatient criteria due
[2020-10-12] MEDS: ARTIFICIAL TEARS OPHTH SOLN 15 ML BOTTLE 1 DROP EACH EYE ×2 (15:56→16:01)
[2020-10-12 18:07] VITALS: PULSE 60; RESP 14
[2020-10-12] MEDS: HYDROmorphone HCL INJ (*CRX) 2 MG/ML VIAL 4 MG IV PUSH (18:41)
[2020-10-13] MEDS: HYDROmorphone HCL INJ (*CRX) 2 MG/ML VIAL 4 MG IV PUSH (05:06)
[2020-10-13 06:29] VITALS: BP 130/68; PULSE 97; RESP 16; TEMP 36.4; O2SAT 92
[2020-10-13 06:47] VITALS: PULSE 60; RESP 14
[2020-10-13] MEDS: HYDROmorphone HCL/PF (*CRX) 50 MG in SODIUM CHLORIDE 0.9% IV 95 ML 8 MG IV CONT ×2 (06:47→22:17)
[2020-10-13] MEDS: LORazepam INJ (*CRX) 2 MG/ML VIAL 1 MG IV PUSH (12:41)
[2020-10-13 13:11] VITALS: PULSE 60; RESP 14
[2020-10-13] MEDS: ARTIFICIAL TEARS OPHTH SOLN 15 ML BOTTLE 1 DROP EACH EYE ×2 (13:14→22:33)
[2020-10-13 14:47] VITALS: BP 129/95; PULSE 52; RESP 16; TEMP 36.4; O2SAT 92
--- NOTE | 2020-10-13 17:28 | PM.IMPN ---
Progress Note: A&P Assessment and Plan (1) Palliative care by specialist: Code(s): Z51.5 - Encounter for palliative care Status: Acute Assessment and Plan: Meets hospice inpatient criteria due to uncontrolled pain and restlessness requiring continuous IV hydromorphone for control Continue hydromorphone 4mg/hr and 4mg q 2 hr prn Use prn lorazepam IV for myoclonic jerks, which are likely due to opioid-induced neurotoxicity Remainder of palliative regimen as ordered D/w spouse at bedside (2) Lung cancer: Qualifiers: Laterality: unspecified laterality Lung location: unspecified part of lung Qualified Code(s): C34.90 - Malignant neoplasm of unspecified part of unspecified bronchus or lung Code(s): C34.90 - Malignant neoplasm of unspecified part of unspecified bronchus or lung Status: Acute (3) Bone metastasis: Code(s): C79.51 - Secondary malignant neoplasm of bone Status: Acute (4) Altered mental status: Qualifiers: Altered mental status type: unspecified Qualified Code(s): R41.82 - Altered mental status, unspecified Code(s): R41.82 - Altered mental status, unspecified Status: Inactive (5) Essential hypertension: Code(s): I10 - Essential (primary) hypertension Status: Acute (6) Chronic atrial fibrillation, unspecified: Code(s): I48.20 - Chronic atrial fibrillation, unspecified Status: Acute Subjective Date/time seen: 10/13/20 17:00 Review of Systems Review of Systems: ROS unobtainable: Yes unobtainable due to medical condition Exam Narrative: HEENT: Pupils small and sluggish, sclerae nonicteric, pharyngeal mucosa pink and intact NECK: Hard cervical collar in place CHEST: Coarse BS. Normal effort. HEART: NL S1/S2, regular, no murmur ABDOMEN: BS hypoactive, soft, nontender, no mass, no bruits EXTREMITIES: No cyanosis, edema, or clubbing NEUROLOGIC: CN intact and symmetric to inspection. MUSCULOSKELETAL: Tone and strength symmetric. PSYCH: Drowsy but arouses easily. Oriented to person only. Intermittent mild myoclonic jerks of extremities. Objective Data Vital Signs Vital Signs: Vital Signs - 24 hr 10/12/20 18:07 10/13/20 06:29 10/13/20 06:47 Temperature 97.6 F Pulse Rate 60 97 60 Respiratory Rate 14 16 14 Blood Pressure 130/68 Pulse Oximetry 92 10/13/20 13:11 10/13/20 14:47 Temperature 97.5 F L Pulse Rate 60 52 L Respiratory Rate 14 16 Blood Pressure 129/95 H Pulse Oximetry 92 Intake/Output Intake/Output: Intake & Output 10/10/20 10/11/20 10/12/20 10/13/20 23:59 23:59 23:59 23:59 Intake Total 100 100 Output Total 150 Balance 100 -50 Meds/Results Medications: Active Medications Generic Name Dose Route Start Last Admin Trade Name Freq PRN Reason Stop Dose Admin Acetaminophen 650 mg 10/12/20 06:28 Acetaminophen 650 Mg Suppository RECTAL Q6H PRN Fever Artificial Tears 1 drop 10/12/20 06:28 10/12/20 15:56 Artificial Tears Ophth Soln 15 Ml Bottle EACH EYE 1 drop Q4H PRN Administration Dry Eye(s) Artificial Tears 1 drop 10/12/20 14:00 10/13/20 13:14 Artificial Tears Ophth Soln 15 Ml Bottle EACH EYE 1 drop Q8HR MAR Administration Bisacodyl 10 mg 10/12/20 06:57 Bisacodyl 10 Mg Suppository RECTAL QAM PRN Constipation Glycopyrrolate 0.1 mg 10/12/20 06:57 Glycopyrrolate Inj (*Sp) 0.2 Mg/Ml Vial IV PUSH Q4H PRN Secretions Hydromorphone HCl 4 mg 10/12/20 06:37 10/13/20 05:06 Hydromorphone Hcl Inj (*Crx) 2 Mg/Ml Vial IV PUSH 4 mg Q2H PRN Administration Pain/ SOB Hydromorphone HCl 50 mg/ 100 mls @ 8 mls/hr 10/12/20 06:40 10/13/20 13:11 Sodium Chloride IV CONT 4 mg/hr .[id number] MAR 8 mls/hr Infusion 4 MG/HR Lorazepam 1 mg 10/12/20 06:28 10/13/20 12:41 Lorazepam Inj (*Crx) 2 Mg/Ml Vial IV PUSH 1 mg Q4H PRN Administration Anxiety Proch
[2020-10-13 19:17] VITALS: PULSE 60; RESP 16
[2020-10-13 22:17] VITALS: PULSE 60; RESP 16
[2020-10-14 06:00] VITALS: BP 117/84; PULSE 102; RESP 18; TEMP 36.9; O2SAT 92
[2020-10-14 07:34] VITALS: PULSE 102; RESP 18
[2020-10-14] MEDS: HYDROmorphone HCL/PF (*CRX) 50 MG in SODIUM CHLORIDE 0.9% IV 95 ML 8 MG IV CONT ×2 (07:34→20:45)
[2020-10-14 08:00] VITALS: O2SAT 91
[2020-10-14] MEDS: HYDROmorphone HCL INJ (*CRX) 2 MG/ML VIAL 4 MG IV PUSH ×2 (08:54→12:07)
[2020-10-14] MEDS: LORazepam INJ (*CRX) 2 MG/ML VIAL 1 MG IV PUSH (12:07)
[2020-10-14 14:11] VITALS: BP 109/66; PULSE 128; RESP 24; TEMP 37.1; O2SAT 92
--- NOTE | 2020-10-14 16:51 | PM.IMPN ---
Progress Note: A&P Assessment and Plan (1) Palliative care by specialist: Code(s): Z51.5 - Encounter for palliative care Status: Acute Assessment and Plan: Meets hospice inpatient criteria due to uncontrolled pain and restlessness requiring continuous IV hydromorphone for control Continue hydromorphone 4mg/hr and 4mg q 2 hr prn Use prn lorazepam IV for myoclonic jerks, which are likely due to opioid-induced neurotoxicity Remainder of palliative regimen as ordered D/w spouse at bedside (2) Lung cancer: Qualifiers: Laterality: unspecified laterality Lung location: unspecified part of lung Qualified Code(s): C34.90 - Malignant neoplasm of unspecified part of unspecified bronchus or lung Code(s): C34.90 - Malignant neoplasm of unspecified part of unspecified bronchus or lung Status: Acute (3) Bone metastasis: Code(s): C79.51 - Secondary malignant neoplasm of bone Status: Acute (4) Altered mental status: Qualifiers: Altered mental status type: unspecified Qualified Code(s): R41.82 - Altered mental status, unspecified Code(s): R41.82 - Altered mental status, unspecified Status: Inactive (5) Essential hypertension: Code(s): I10 - Essential (primary) hypertension Status: Acute (6) Chronic atrial fibrillation, unspecified: Code(s): I48.20 - Chronic atrial fibrillation, unspecified Status: Acute Subjective Date/time seen: 10/14/20 16:20 Interval history: 10/14: Comfortable all day on continuous hydromorphone IV. Sleeping most of the day. Took only sips of water. Review of Systems Review of Systems: ROS unobtainable: Yes unobtainable due to medical condition Exam Narrative: HEENT: Pupils small and sluggish, sclerae nonicteric, pharyngeal mucosa pink and intact NECK: Hard cervical collar in place CHEST: Coarse BS. Normal effort. HEART: NL S1/S2, regular, no murmur ABDOMEN: BS hypoactive, soft, nontender, no mass, no bruits EXTREMITIES: No cyanosis, edema, or clubbing NEUROLOGIC: CN intact and symmetric to inspection. MUSCULOSKELETAL: Tone and strength symmetric. PSYCH: Drowsy but arouses easily. Oriented to person only. No myoclonic jerks noted Objective Data Vital Signs Vital Signs: Vital Signs - 24 hr 10/13/20 19:17 10/13/20 22:17 10/14/20 06:00 Temperature 98.5 F Pulse Rate 60 60 102 H Respiratory Rate 16 16 18 Blood Pressure 117/84 Pulse Oximetry 92 10/14/20 07:34 10/14/20 08:00 10/14/20 14:11 Temperature 98.7 F Pulse Rate 102 H 128 H Respiratory Rate 18 24 H Blood Pressure 109/66 Pulse Oximetry 91 92 Intake/Output Intake/Output: Intake & Output 10/11/20 10/12/20 10/13/20 10/14/20 23:59 23:59 23:59 23:59 Intake Total 100 200 90 Output Total 150 Balance 100 50 90 Meds/Results Medications: Active Medications Generic Name Dose Route Start Last Admin Trade Name Freq PRN Reason Stop Dose Admin Acetaminophen 650 mg 10/12/20 06:28 Acetaminophen 650 Mg Suppository RECTAL Q6H PRN Fever Artificial Tears 1 drop 10/12/20 06:28 10/12/20 15:56 Artificial Tears Ophth Soln 15 Ml Bottle EACH EYE 1 drop Q4H PRN Administration Dry Eye(s) Artificial Tears 1 drop 10/12/20 14:00 10/14/20 08:57 Artificial Tears Ophth Soln 15 Ml Bottle EACH EYE Not Given Q8HR MAR Bisacodyl 10 mg 10/12/20 06:57 Bisacodyl 10 Mg Suppository RECTAL QAM PRN Constipation Glycopyrrolate 0.1 mg 10/12/20 06:57 Glycopyrrolate Inj (*Sp) 0.2 Mg/Ml Vial IV PUSH Q4H PRN Secretions Hydromorphone HCl 4 mg 10/12/20 06:37 10/14/20 12:07 Hydromorphone Hcl Inj (*Crx) 2 Mg/Ml Vial IV PUSH 4 mg Q2H PRN Administration Pain/ SOB Hydromorphone HCl 50 mg/ 100 mls @ 8 mls/hr 10/12/20 06:40 10/14/20 07:34 Sodium Chloride IV CONT 4 mg/hr .[id number] MAR 8 mls/hr Administration 4 MG/HR Lorazepam 1 mg
[2020-10-14 20:00] VITALS: BP 149/68; PULSE 116; RESP 18; TEMP 36.7; O2SAT 93
[2020-10-14] MEDS: ARTIFICIAL TEARS OPHTH SOLN 15 ML BOTTLE 1 DROP EACH EYE ×2 (20:52)
[2020-10-15] MEDS: LORazepam INJ (*CRX) 2 MG/ML VIAL 1 MG IV PUSH ×2 (01:54→07:39)
[2020-10-15 08:00] VITALS: BP 131/68; PULSE 125; RESP 12; TEMP 37.1; O2SAT 89
[2020-10-15] MEDS: HYDROmorphone HCL/PF (*CRX) 50 MG in SODIUM CHLORIDE 0.9% IV 95 ML 8 MG IV CONT ×2 (09:10→20:58)
[2020-10-15] MEDS: ARTIFICIAL TEARS OPHTH SOLN 15 ML BOTTLE 1 DROP EACH EYE (13:21)
--- NOTE | 2020-10-15 20:26 | PM.IMPN ---
Progress Note: A&P Assessment and Plan (1) Palliative care by specialist: Code(s): Z51.5 - Encounter for palliative care Status: Acute Assessment and Plan: Meets hospice inpatient criteria due to uncontrolled pain and restlessness requiring continuous IV hydromorphone for control Continue hydromorphone 4mg/hr and 4mg q 2 hr prn Use prn lorazepam IV for myoclonic jerks, which are likely due to opioid-induced neurotoxicity Remainder of palliative regimen as ordered D/w spouse at bedside (2) Lung cancer: Qualifiers: Laterality: unspecified laterality Lung location: unspecified part of lung Qualified Code(s): C34.90 - Malignant neoplasm of unspecified part of unspecified bronchus or lung Code(s): C34.90 - Malignant neoplasm of unspecified part of unspecified bronchus or lung Status: Acute (3) Bone metastasis: Code(s): C79.51 - Secondary malignant neoplasm of bone Status: Acute (4) Altered mental status: Qualifiers: Altered mental status type: unspecified Qualified Code(s): R41.82 - Altered mental status, unspecified Code(s): R41.82 - Altered mental status, unspecified Status: Inactive (5) Essential hypertension: Code(s): I10 - Essential (primary) hypertension Status: Acute (6) Chronic atrial fibrillation, unspecified: Code(s): I48.20 - Chronic atrial fibrillation, unspecified Status: Acute Subjective Date/time seen: 10/15/20 20:26 Interval history: 10/15: Sleeping all day. No PO intake. Review of Systems Review of Systems: ROS unobtainable: Yes unobtainable due to medical condition Exam Narrative: HEENT: Pupils small and sluggish, sclerae nonicteric, pharyngeal mucosa pink and intact NECK: Hard cervical collar in place CHEST: Coarse BS. Normal effort. HEART: NL S1/S2, regular, no murmur ABDOMEN: BS hypoactive, soft, nontender, no mass, no bruits EXTREMITIES: No cyanosis, edema, or clubbing NEUROLOGIC: CN intact and symmetric to inspection. MUSCULOSKELETAL: Tone and strength symmetric. PSYCH: Sleeping. Objective Data Vital Signs Vital Signs: Vital Signs - 24 hr 10/15/20 08:00 Temperature 98.7 F Pulse Rate 125 H Respiratory Rate 12 Blood Pressure 131/68 Pulse Oximetry 89 L Intake/Output Intake/Output: Intake & Output 10/12/20 10/13/20 10/14/20 10/15/20 23:59 23:59 23:59 23:59 Intake Total 100 200 190 100 Output Total 150 Balance 100 50 190 100 Meds/Results Medications: Active Medications Generic Name Dose Route Start Last Admin Trade Name Freq PRN Reason Stop Dose Admin Acetaminophen 650 mg 10/12/20 06:28 Acetaminophen 650 Mg Suppository RECTAL Q6H PRN Fever Artificial Tears 1 drop 10/12/20 06:28 10/14/20 20:52 Artificial Tears Ophth Soln 15 Ml Bottle EACH EYE 1 drop Q4H PRN Administration Dry Eye(s) Artificial Tears 1 drop 10/12/20 14:00 10/15/20 13:21 Artificial Tears Ophth Soln 15 Ml Bottle EACH EYE 1 drop Q8HR MAR Administration Bisacodyl 10 mg 10/12/20 06:57 Bisacodyl 10 Mg Suppository RECTAL QAM PRN Constipation Glycopyrrolate 0.1 mg 10/12/20 06:57 Glycopyrrolate Inj (*Sp) 0.2 Mg/Ml Vial IV PUSH Q4H PRN Secretions Hydromorphone HCl 4 mg 10/12/20 06:37 10/14/20 12:07 Hydromorphone Hcl Inj (*Crx) 2 Mg/Ml Vial IV PUSH 4 mg Q2H PRN Administration Pain/ SOB Hydromorphone HCl 50 mg/ 100 mls @ 8 mls/hr 10/12/20 06:40 10/15/20 09:10 Sodium Chloride IV CONT 4 mg/hr .[id number] MAR 8 mls/hr Administration 4 MG/HR Lorazepam 1 mg 10/12/20 06:28 10/15/20 07:39 Lorazepam Inj (*Crx) 2 Mg/Ml Vial IV PUSH 1 mg Q4H PRN Administration Anxiety Prochlorperazine Edisylate 10 mg 10/12/20 06:56 Prochlorperazine Edisylate 10 Mg/2 Ml Vial IV PUSH Q6H PRN Nausea And Vomiting
[2020-10-16] MEDS: HYDROmorphone HCL INJ (*CRX) 2 MG/ML VIAL 4 MG IV PUSH (00:30)
[2020-10-16 06:00] VITALS: BP 93/67; PULSE 144; RESP 16; TEMP 37.2; O2SAT 86
[2020-10-16 07:40] VITALS: O2SAT 90
[2020-10-16] MEDS: HYDROmorphone HCL/PF (*CRX) 50 MG in SODIUM CHLORIDE 0.9% IV 95 ML 8 MG IV CONT ×2 (07:49→19:26)
[2020-10-16 13:00] VITALS: BP 102/66; PULSE 139; RESP 14; TEMP 36.8; O2SAT 93
[2020-10-16] MEDS: ARTIFICIAL TEARS OPHTH SOLN 15 ML BOTTLE 1 DROP EACH EYE ×2 (13:21→14:00)
--- NOTE | 2020-10-16 16:55 | PM.IMPN ---
Progress Note: A&P Assessment and Plan (1) Palliative care by specialist: Code(s): Z51.5 - Encounter for palliative care Status: Acute Assessment and Plan: Meets hospice inpatient criteria due to uncontrolled pain and restlessness requiring continuous IV hydromorphone for control Continue hydromorphone 4mg/hr and 4mg q 2 hr prn Use prn lorazepam IV for myoclonic jerks, which are likely due to opioid-induced neurotoxicity Remainder of palliative regimen as ordered (2) Lung cancer: Qualifiers: Laterality: unspecified laterality Lung location: unspecified part of lung Qualified Code(s): C34.90 - Malignant neoplasm of unspecified part of unspecified bronchus or lung Code(s): C34.90 - Malignant neoplasm of unspecified part of unspecified bronchus or lung Status: Acute (3) Bone metastasis: Code(s): C79.51 - Secondary malignant neoplasm of bone Status: Acute (4) Altered mental status: Qualifiers: Altered mental status type: unspecified Qualified Code(s): R41.82 - Altered mental status, unspecified Code(s): R41.82 - Altered mental status, unspecified Status: Inactive (5) Essential hypertension: Code(s): I10 - Essential (primary) hypertension Status: Acute (6) Chronic atrial fibrillation, unspecified: Code(s): I48.20 - Chronic atrial fibrillation, unspecified Status: Acute Subjective Date/time seen: 10/16/20 16:30 Interval history: 10/16: Sleeping all day. No PO intake. One dose of PRN hydromorphone around midnight Review of Systems Review of Systems: ROS unobtainable: Yes unobtainable due to medical condition Exam Narrative: HEENT: pharyngeal mucosa pink and intact NECK: Hard cervical collar in place CHEST: Coarse BS. Normal effort. HEART: NL S1/S2, regular, no murmur ABDOMEN: BS hypoactive, soft, nontender, no mass, no bruits EXTREMITIES: No cyanosis, edema, or clubbing NEUROLOGIC: CN intact and symmetric to inspection. MUSCULOSKELETAL: Tone symmetric. PSYCH: Minimally responsive to touch. Objective Data Vital Signs Vital Signs: Vital Signs - 24 hr 10/16/20 06:00 10/16/20 07:40 10/16/20 13:00 Temperature 98.9 F 98.2 F Pulse Rate 144 H 139 H Respiratory Rate 16 14 Blood Pressure 93/67 L 102/66 Pulse Oximetry 86 L 90 93 Intake/Output Intake/Output: Intake & Output 10/13/20 10/14/20 10/15/20 10/16/20 23:59 23:59 23:59 23:59 Intake Total 200 190 200 100 Output Total 150 Balance 50 190 200 100 Meds/Results Medications: Active Medications Generic Name Dose Route Start Last Admin Trade Name Freq PRN Reason Stop Dose Admin Acetaminophen 650 mg 10/12/20 06:28 Acetaminophen 650 Mg Suppository RECTAL Q6H PRN Fever Artificial Tears 1 drop 10/12/20 06:28 10/16/20 13:21 Artificial Tears Ophth Soln 15 Ml Bottle EACH EYE 1 drop Q4H PRN Administration Dry Eye(s) Artificial Tears 1 drop 10/12/20 14:00 10/16/20 14:00 Artificial Tears Ophth Soln 15 Ml Bottle EACH EYE 1 drop Q8HR MAR Administration Bisacodyl 10 mg 10/12/20 06:57 Bisacodyl 10 Mg Suppository RECTAL QAM PRN Constipation Glycopyrrolate 0.1 mg 10/12/20 06:57 Glycopyrrolate Inj (*Sp) 0.2 Mg/Ml Vial IV PUSH Q4H PRN Secretions Hydromorphone HCl 4 mg 10/12/20 06:37 10/16/20 00:30 Hydromorphone Hcl Inj (*Crx) 2 Mg/Ml Vial IV PUSH 4 mg Q2H PRN Administration Pain/ SOB Hydromorphone HCl 50 mg/ 100 mls @ 8 mls/hr 10/12/20 06:40 10/16/20 07:49 Sodium Chloride IV CONT 4 mg/hr .[id number] MAR 8 mls/hr Administration 4 MG/HR Lorazepam 1 mg 10/12/20 06:28 10/15/20 07:39 Lorazepam Inj (*Crx) 2 Mg/Ml Vial IV PUSH 1 mg Q4H PRN Administration Anxiety Prochlorperazine Edisylate 10 mg 10/12/20 06:56 Prochlorperazine Edisylate 10 Mg/2 Ml Vial IV PUSH Q6H PRN Nausea And Vomiting
--- NOTE | 2020-10-17 06:31 | PC.NURSE ---
Patient at 0545. Confirmed with audio visual director. [facility] made aware.
--- NOTE | 2020-10-17 13:50 | P.DN_ITS ---
Discharge Summary Date and Time Date of : 10/17/20 Time of : 05:45 Provider Pronounced By: Marisela Andrews RN Probable Cause of Probable Cause of : Lung cancer with metastases to bone Summary Hospital Course: Admitted to inpatient hospice for uncontrolled pain. IV hydromorphone inititated and did not require titration. Breakthrough dosing was minimal. He peacefully. Additional Data Name of Provider Notified: Dr. Jon Butler Time Provider Notified: 06:01 Provider Requests Autopsy: No Family Requests Autopsy: No Tone Cabinet Assembler Notified: Yes Date [facility] Notified of : 10/17/20 Time [facility] Notified of : 05:55
--- OUTSIDE RECORDS SUMMARY | 2020-10-21 07:33 | XMS_ITS ---
[...] a day by oral route as needed. bisacodyl 10 mg rectal suppository Active ? Not available UNWRAP AND INSERT 1 SUPPOSITORY RECTALLY DAILY NEEDED FOR CO NSTIPATION Cialis 5 mg tablet Completed ? 10/01/2015 [...] DAYS BEFORE THE FIRST TREATMENT AND CONTINUING UN
--- OUTSIDE RECORDS SUMMARY | 2020-10-21 07:33 | XMS_ITS | Continuity of Care Document ---
:1950 Author Organization [facility] Care Team Providers Name Role Phone [facility] Unavailable Unavailable Medications Combined list of outpatient medications from [facility] and [facility] facilities. Medications provided include 1) outpatient medications from [facility] 15 months, and 2) patient-reported medications. Medication Details Route Status Patient Prescription Prescription Last Ordering Order Source Instructions Expires Number Dispense Provider Date Date CYCLOBENZAP Active [id number] CARI, 08/22 / Pharmac RINE HCL 2020 y Data (cyclobenza Transac jani HCl), tion 10 MG, Service TABLET, Facilit ORAL, y Direct Hit., 1000 ea. BOTTLE CYCLOBENZAP Active [id number] FACUNDO, 06/28 4/ Pharmac RINE HCL 2020 y Data (cyclobenza Transac jani HCl), tion 5 MG, Service TABLET, Facilit ORAL, y Direct Hit., 100 ea. BOTTLE DEXAMETHASO Active [id number] JOHNZT / Pharmac NE 1 2020 y Data (DEXA
== END 2020-10-17 05:45 | disposition expired | DRG 951 ==
PROVIDERS: Admitting Provider Internal Medicine; PCP Family Medicine; Visit Provider Internal Medicine
DX: Z51.5 Encounter for palliative care (principal); C34.90 Malignant neoplasm of unspecified part of unspecified bronchus or lung; C79.51 Secondary malignant neoplasm of bone; I48.20 Chronic atrial fibrillation, unspecified; I10 Essential (primary) hypertension; Z85.46 Personal history of malignant neoplasm of prostate; Z90.49 Acquired absence of other specified parts of digestive tract; Z90.79 Acquired absence of other genital organ(s)
CPT/HCPCS: A9270; J1170; J2060